=== PATIENT | male | born 1930 | race Caucasian/White ===

== ENCOUNTER 2016-11-07 19:46 | Inpatient (IN) | payer MEDICARE, BC ==
[2016-11-07] MEDS ORDERED: SODIUM CHLORIDE 0.9% 1,000 ML IV STA ×2 (20:37)
[2016-11-07] MEDS ORDERED: IPRATROPIUM-ALBUTEROL 3 ML NEB INHALATION STA (20:37)
--- NOTE | 2016-11-07 20:54 | ED ---
General Adult HPI - General Chief complaint: Shortness of Breath Stated complaint: Confusion Time Seen by Provider: 11/07/16 20:10 Source: patient, family, RN notes reviewed, old records reviewed Mode of arrival: wheelchair Limitations: no limitations - History of Present Illness Initial comments: This is an 86-year-old male the ER for evaluation of severe weakness. Increased weakness lethargy and anhedonia. Patient coming from [facility] today, patient with lack of activity lack of strength lack of appetite. Shortness of breath. Cough. Patient denies any pain at this time. Patient is recent complex medical history stemming from cardiac surgery, wound dehiscence, fall, hip fracture and surgery, and slow progressing rehabilitation. - Related Data Home Medications Medication Instructions Recorded Confirmed Allopurinol [Zyloprim] 100 mg PO DAILY 05/31/14 11/07/16 Ascorbic Acid [Vitamin C] 500 mg PO W/SUPPER 05/31/14 11/07/16 Ferrous Sulfate [Feosol] 325 mg PO WESA 05/31/14 11/07/16 Iron Polysaccharide Complex 150 mg PO W/SUPPER 05/31/14 11/07/16 [Ferrex 150] Levothyroxine Sodium 300 mcg PO MOTUWETHFR 05/31/14 11/07/16 Levothyroxine Sodium [Synthroid] 150 mcg PO SUSA 01/30/16 11/07/16 Atorvastatin Calcium [Lipitor] 40 mg PO HS 07/15/16 11/07/16 Fludrocortisone [Florinef] 0.05 mg PO DAILY 07/15/16 11/07/16 Aspirin 325 mg PO BID@0800,1700 08/15/16 11/07/16 Clopidogrel [Plavix] 75 mg PO W/SUPPER 08/15/16 11/07/16 Terazosin [Hytrin] 5 mg PO DAILY 08/15/16 11/07/16 Calcium Carbonate [Calcium] 600 mg PO BID 11/07/16 11/07/16 Cyanocobalamin [Vitamin B-12] 1,000 mcg PO W/SUPPER 11/07/16 11/07/16 Famotidine [Pepcid] 20 mg PO BID 11/07/16 11/07/16 Ipratropium-Albuterol Nebulize 3 ml INHALATION RT-QID 11/07/16 11/07/16 [Duoneb 0.5 mg-3 mg/3 ml Soln] Ipratropium-Albuterol Nebulize 3 ml INHALATION RT-QID PRN 11/07/16 11/07/16 [Duoneb 0.5 mg-3 mg/3 ml Soln] Mirtazapine [Remeron] 15 mg PO W/SUPPER 11/07/16 11/07/16 Sennosides [Senna] 8.6 mg PO BID 11/07/16 11/07/16 amLODIPine [Norvasc] 5 mg PO DAILY 11/07/16 11/07/16 Previous Rx's Medication Instructions Recorded Nitroglycerin Sl Tabs [Nitrostat] 0.4 mg SUBLINGUAL Q5M PRN #0 tab 07/23/16 Carvedilol [Coreg] 6.25 mg PO BID-W/MEALS tab 08/12/16 ALPRAZolam [Xanax] 0.25 mg PO BID PRN #60 tab 08/27/16 Allergies Allergy/AdvReac Type Severity Reaction Status Date / Time hops Allergy Unknown Verified 11/07/16 21:08 Penicillins Allergy Itching Verified 11/07/16 21:08 tomato Allergy Unknown Verified 11/07/16 21:08 Review of Systems ROS Statement: Those systems with pertinent positive or pertinent negative responses have been documented in the HPI. ROS Other: All systems not noted in ROS Statement are negative. Past Medical History Past Medical History: Coronary Artery Disease (CAD), Cancer, Heart Failure, COPD , CVA/TIA, GERD/Reflux, Hyperlipidemia, Hypertension, Osteoarthritis (OA), Prostate Disorder, Thyroid Disorder Additional Past Medical History / Comment(s): pancreatic ca-2006, history of mini strokes, history of carotid endarterectomy on the left for carotid artery disease, diverticulosis, iron deficiency anemia/MGUS, CVA/TIA, hyperlipidemia, hypertension, osteoarthritis, hypothyroidism FX LT HIP IN JUL-2016 NON-HEALING CHEST WALL WOUND(HAD OPEN HEART RECENTLY), PER [place] SHEETS 02 2 LITERS, OCC INCONT OF URINE. PT CURRENTLY W/C OF LIFT History of Any Multi-Drug Resistant Organisms: Acinetobacter (MDRO) Date of last positivie culture/infection: 08/20/2016 MDRO Source:: chest Past Surgical History: Adenoidectomy, Appendectomy, Cholecystectomy, Coronary Bypass/CABG, Heart Catheterization, Hernia Repair, Tonsillectomy Additional Past Surgical History / Comment(s): Hernia repair in 1999, 2009, and 2011, Whipple procedure August 2007, left carotid endarterectomy 1995, nasal polyp 1995,NASAL RECONSTRUCTIVE SX, PROSTATE BX, CABG x3 & mitral vaule repair and exclusion of JESÚS. 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 [facility]. Smoking Status: Never smoker Past Alcohol Use History: None Reported Past Drug Use History: None Reported - Past Family History Father Family Medical History: Coronary Artery Disease (CAD), Myocardial Infarction ([place] ) Additional Family Medical History / Comment(s): THROMBOSIS Mother Family Medical History: No Reported History Additional Family Medical History / Comment(s): MOM LIVED TO BE 105- FROM OLD AGE Brother(s) Family Medical History: Coronary Artery Disease (CAD), Pneumonia Sister(s) Family Medical History: Pneumonia Son(s) Family Medical History: No Reported History Daughter(s) Family Medical History: No Reported History General Exam Limitations: no limitations General appearance: alert, anxious, lethargic, in distress, cachectic Head exam: Present: atraumatic, normocephalic, normal inspection Eye exam: Present: normal appearance, PERRL, EOMI. Absent: scleral icterus, conjunctival injection, periorbital swelling ENT exam: Present: mucous membranes dry Neck exam: Present: normal inspection. Absent: tenderness, meningismus, lymphadenopathy Respiratory exam: Present: normal lung sounds bilaterally. Absent: respiratory distress, wheezes, rales, rhonchi, stridor Cardiovascular Exam: Present: regular rate, normal rhythm, normal heart sounds. Absent: systolic murmur, diastolic murmur, rubs, gallop, clicks GI/Abdominal exam: Present: soft, normal bowel sounds. Absent: distended, tenderness, guarding, rebound, rigid Extremities exam: Present: normal inspection, full ROM, normal capillary refill. Absent: tenderness, pedal edema, joint swelling, calf tenderness Back exam: Present: normal inspection Neurological exam: Present: alert, oriented X3, CN II-XII intact Psychiatric exam: Present: normal affect, normal mood Skin exam: Present: warm, dry, intact, normal color. Absent: rash Course Vital Signs 11/07/16 11/07/16 11/07/16 20:23 20:27 21:08 Temperature 98 F Pulse Rate 67 61 Respiratory 16 Rate Blood Pressure 118/60 O2 Sat by Pulse 82 L 100 Oximetry 11/07/16 11/07/16 21:22 21:43 Temperature 97.8 F Pulse Rate 58 L 78 Respiratory 20 Rate Blood Pressure 94/50 O2 Sat by Pulse 98 Oximetry - Reevaluation(s) Reevaluation #1: 11/07/16 20:54 Patient pulse ox low on room air, 82%, mild improvement on oxygen and breathing treatment Reevaluation #2: 11/07/16 21:39 Patient with no significant improvement in breathing treatment Reevaluation #3: 11/07/16 22:09 Spoke with family greater than 50 Ministry on patient condition, questions are answered, patient with no clinical improvement EKG Findings - EKG Comments: EKG Findings:: EKG shows sinus rhythm rate of 62, pr 214, QRS 122, QTc 507 Medical Decision Making - Medical Decision Making 86 year for evaluation of shortness of breath. Patient noted to be severely anemic, weak and dehydrated on exam. Malnourished. Patient does have drainage from surgical vac, bloody drainage, patient's hemoglobin has dropped significantly. Patient be admitted for monitoring of hemoglobin transfusion and further management and treatment of chronic disease - Lab Data Result diagrams: 11/07/16 20:57 11/07/16 20:57 Lab Results 11/07/16 11/07/16 11/07/16 Range/Units 20:57 20:57 20:57 WBC 6.3 (3.8-10.6) k/uL RBC 1.91 L (4.30-5.90) m/uL Hgb 6.5 L* D (13.0-17.5) gm/dL Hct 20.3 L (39.0-53.0) % MCV 106.5 H (80.0-100.0) fL MCH 34.0 (25.0-35.0) pg MCHC 31.9 (31.0-37.0) g/dL RDW 19.1 H (11.5-15.5) % Plt Count 188 (150-450) k/uL Neutrophils % 64 % Lymphocytes % 12 % Monocytes % 8 % Eosinophils % 13 % Basophils % 0 % Neutrophils # 4.0 (1.3-7.7) k/uL Lymphocytes # 0.7 L (1.0-4.8) k/uL Monocytes # 0.5 (0-1.0) k/uL Eosinophils # 0.8 H (0-0.7) k/uL Basophils # 0.0 (0-0.2) k/uL Hypochromasia Moderate Anisocytosis Slight Macrocytosis Marked PT (9.0-12.0) sec INR (<1.1) APTT (22.0-30.0) sec Sodium 147 H (137-145) mmol/L Potassium 3.8 (3.5-5.1) mmol/L Chloride 106 (98-107) mmol/L Carbon Dioxide 31 H (22-30) mmol/L Anion Gap 10 mmol/L BUN 37 H (9-20) mg/dL Creatinine 1.46 H (0.66-1.25) mg/dL Est GFR (MDRD) Af Amer 55 (>60 ml/min/1.73 sqM) Est GFR (MDRD) Non-Af 46 (>60 ml/min/1.73 sqM) Glucose 92 (74-99) mg/dL Plasma Lactic Acid Uvaldo (0.7-2.0) mmol/L Calcium 8.7 (8.4-10.2) mg/dL Phosphorus 4.3 (2.5-4.5) mg/dL Magnesium 1.6 (1.6-2.3) mg/dL Total Bilirubin 0.3 (0.2-1.3) mg/dL AST 31 (17-59) U/L ALT 49 (21-72) U/L Alkaline Phosphatase 97 (38-126) U/L Total Creatine Kinase 22 L (55-170) U/L CK-MB (CK-2) 2.1 (0.0-2.4) ng/mL CK-MB (CK-2) Rel Index 9.5 Troponin I <0.012 (0.000-0.034) ng/mL Total Protein 5.8 L (6.3-8.2) g/dL Albumin 2.9 L (3.5-5.0) g/dL TSH 10.000 H (0.465-4.680) mIU/L 11/07/16 11/07/16 Range/Units 20:57 20:57 WBC (3.8-10.6) k/uL RBC (4.30-5.90) m/uL Hgb (13.0-17.5) gm/dL Hct (39.0-53.0) % MCV (80.0-100.0) fL MCH (25.0-35.0) pg MCHC (31.0-37.0) g/dL RDW (11.5-15.5) % Plt Count (150-450) k/uL Neutrophils % % Lymphocytes % % Monocytes % % Eosinophils % % Basophils % % Neutrophils # (1.3-7.7) k/uL Lymphocytes # (1.0-4.8) k/uL Monocytes # (0-1.0) k/uL Eosinophils # (0-0.7) k/uL Basophils # (0-0.2) k/uL Hypochromasia Anisocytosis Macrocytosis PT 11.2 (9.0-12.0) sec INR 1.1 (<1.1) APTT 27.6 (22.0-30.0) sec Sodium (137-145) mmol/L Potassium (3.5-5.1) mmol/L Chloride (98-107) mmol/L Carbon Dioxide (22-30) mmol/L Anion Gap mmol/L BUN (9-20) mg/dL Creatinine (0.66-1.25) mg/dL Est GFR (MDRD) Af Amer (>60 ml/min/1.73 sqM) Est GFR (MDRD) Non-Af (>60 ml/min/1.73 sqM) Glucose (74-99) mg/dL Plasma Lactic Acid Uvaldo <0.5 L (0.7-2.0) mmol/L Calcium (8.4-10.2) mg/dL Phosphorus (2.5-4.5) mg/dL Magnesium (1.6-2.3) mg/dL Total Bilirubin (0.2-1.3) mg/dL AST (17-59) U/L ALT (21-72) U/L Alkaline Phosphatase (38-126) U/L Total Creatine Kinase (55-170) U/L CK-MB (CK-2) (0.0-2.4) ng/mL CK-MB (CK-2) Rel Index Troponin I (0.000-0.034) ng/mL Total Protein (6.3-8.2) g/dL Albumin (3.5-5.0) g/dL TSH (0.465-4.680) mIU/L - Radiology Data Radiology results: report reviewed (Chest x-ray two-view positive for pneumonia) , image reviewed Critical Care Time Critical Care Time: Yes Total Critical Care Time: 31 Disposition Clinical Impression: Anemia, Iron deficiency anemia, Malnutrition, Disruption or dehiscence of closure of sternum or sternotomy, Blood loss anemia, Nosocomial pneumonia, ARF ( acute renal failure), Dehydration, Weakness Disposition: ADMITTED IP TO THIS HOSP Condition: Fair
[2016-11-07] MEDS ORDERED: LEVOFLOXACIN 750MG-D5W PMX 750 MG in DEXTROSE/WATER 1 150ML.BAG IVPB SCH (21:00)
[2016-11-07 21:14] LABS: Anisocytosis Slight; Basophils % (A) 0 %; CH 32.8; CHCM 31.1; Eosinophils # (A) 0.8 k/uL (0-0.7); Eosinophils % (A) 13 %; HCT 20.3 % (39.0-53.0); HDW 3.08; Hypochromasia Moderate; Luc # (Auto) 0.16; Luc % (Auto) 3; Lymphocytes # (A) 0.7 k/uL (1.0-4.8); Lymphocytes % (A) 12 %; MCHC 31.9 g/dL (31.0-37.0); MCV 106.5 fL (80.0-100.0); Macrocytosis Marked; Mean Platelet Volume 7.9; Monocytes # (A) 0.5 k/uL (0-1.0); Monocytes % (A) 8 %; Neutrophils % (A) 64 %; RBC 1.91 m/uL (4.30-5.90); RDW 19.1 % (11.5-15.5); WBC 6.3 k/uL (3.8-10.6); WBC (Perox) 6.27
[2016-11-07 21:21] LABS: INR 1.1 (<1.1); Partial Thromboplastin Time 27.6 sec (22.0-30.0); Prothrombin Time 11.2 sec (9.0-12.0)
[2016-11-07 21:22] LABS: Calcium 8.7 mg/dL (8.4-10.2); Magnesium 1.6 mg/dL (1.6-2.3); Phosphorous 4.3 mg/dL (2.5-4.5); Potassium 3.8 mmol/L (3.5-5.1); Total Bilirubin 0.3 mg/dL (0.2-1.3); Total Protein 5.8 g/dL (6.3-8.2)
[2016-11-07 21:27] LABS: HGB 6.5 gm/dL (13.0-17.5)
[2016-11-07 21:29] LABS: Creatine Kinase 22 U/L (55-170)
[2016-11-07] MEDS ORDERED: diphenhydrAMINE 50 MG/ML 1 ML VIAL IVP STA (21:38)
[2016-11-07 21:42] LABS: Creatine Kinase MB 2.1 ng/mL (0.0-2.4); Troponin I <0.012 ng/mL (0.000-0.034)
--- NOTE | 2016-11-07 22:03 | XR ---
EXAMINATION TYPE: XR chest 2V DATE OF EXAM: 11/07/2016 9:50 PM COMPARISON: 08/20/2016 HISTORY: Weakness and fatigue TECHNIQUE: Frontal and lateral views of the chest are obtained. FINDINGS: Heart is enlarged. There is some pulmonary vascular congestion. There is blunting of the c ostophrenic angles. There is pleural thickening at the posterior lung bases. There are old left-sided healed rib fractures. There are no hilar masses. There are sternal wires. There are chest leads. IMPRESSION: There is evidence of mild congestive heart failure that is new compared to 08/20/2016. T here is bilateral pleural effusions that are increased. Bilateral lower lobe pneumonia cannot be excl uded. There are basilar pulmonary infiltrates that are new compared to last exam.
[2016-11-07] MEDS ORDERED: LEVOFLOXACIN 750MG-D5W PMX 750 MG in DEXTROSE/WATER 1 150ML.BAG IVPB STA (22:08)
[2016-11-07] MEDS ORDERED: CEFEPIME 2 GM in SODIUM CHLORIDE 0.9% 50 ML IVPB STA (22:08)
[2016-11-07 23:00] VITALS: BMI 21.9
[2016-11-08 05:55] LABS: Glucose,Whole Blood 168 mg/dL (75-99)
[2016-11-08] MEDS ORDERED: NOREPINEPHRINE 4 MG-0.9% NS PMX 250 ML IV ONE (06:05)
[2016-11-08] MEDS ORDERED: ATROPINE SULFATE 0.1 MG/ML 10ML SYRINGE ONE (06:20)
[2016-11-08 07:26] LABS: Amorphous Sediment,Urine Few /hpf; Appearance,Urine Cloudy (Clear); Bilirubin,Urine Negative (Negative); Glucose,Urine (UA) Negative (Negative); Ketones,Urine Negative (Negative); Leukocyte Esterase,Urine Negative (Negative); Mucus,Urine Rare /hpf; Nitrite,Urine Negative (Negative); Particle Count 13777; Protein,Urine 1+ (Negative); Specific Gravity,Urine 1.014 (1.001-1.035); UA Billing (MACRO vs. MICRO) MICRO; Urobilinogen,Urine <2.0 mg/dL (<2.0); WBC,Urine 1 /hpf (0-5)
[2016-11-08] MEDS ORDERED: IV VANCOMYCIN PER PHARMACY 1 EACH MISC MISCELLANE PRN (08:04)
[2016-11-08] MEDS ORDERED: PROPOFOL 50 ML IV ONE ×6 (08:04→23:59)
[2016-11-08] MEDS ORDERED: NOREPINEPHRINE 16 MG in SODIUM CHLORIDE 0.9% 250 ML IV SCH (08:15)
[2016-11-08] MEDS ORDERED: VANCOMYCIN 1,250 MG in SODIUM CHLORIDE 0.9% 250 ML IVPB ONE (08:30)
--- NOTE | 2016-11-08 08:43 | XR ---
EXAMINATION TYPE: XR chest 1V portable DATE OF EXAM: 11/08/2016 8:30 AM Comparison: 11/07/2016 Clinical History: 6 year-old male tube placement Findings: ET tube is satisfactory. NG tube courses below the diaphragm but the tip is beyond the field of view. Left PICC tip is at the lower SVC. Heart is borderline enlarged, improved from prior. Median sternotomy wires are present with post-CABG changes. There is hyperinflation with interstitial prominence although densities are improved from p rior. Small pleural effusions persist. Impression: Findings suggest COPD with improving CHF. Residual small pleural effusions.
[2016-11-08] MEDS: IPRATROPIUM-ALBUTEROL 3 ML NEB INHALATION PRN ×4 (08:50→19:18)
[2016-11-08] MEDS ORDERED: CEFEPIME 2 GM in SODIUM CHLORIDE 0.9% 50 ML IVPB SCH (09:00)
[2016-11-08 10:00] LABS: ABG PH <7.00 (7.35-7.45)
[2016-11-08 10:01] LABS: ABG PCO2 >125 mmHg (35-45); ABG PO2 218 mmHg (83-108)
[2016-11-08 10:01] LABS: Anisocytosis Slight; Basophils % (A) 0 %; CH 32.9; CHCM 30.1; Eosinophils # (A) 0.1 k/uL (0-0.7); Eosinophils % (A) 2 %; HCT 34.8 % (39.0-53.0); HDW 3.44; Hypochromasia Marked; Luc # (Auto) 0.17; Luc % (Auto) 3; Lymphocytes # (A) 0.7 k/uL (1.0-4.8); Lymphocytes % (A) 14 %; MCH 31.9 pg (25.0-35.0); MCHC 28.8 g/dL (31.0-37.0); MCV 110.9 fL (80.0-100.0); Macrocytosis Marked; Mean Platelet Volume 8.5; Monocytes # (A) 0.5 k/uL (0-1.0); Monocytes % (A) 10 %; Neutrophils # (A) 3.7 k/uL (1.3-7.7); Neutrophils % (A) 71 %; Poikilocytosis Slight; RBC 3.14 m/uL (4.30-5.90); RDW 19.4 % (11.5-15.5); WBC 5.2 k/uL (3.8-10.6); WBC (Perox) 4.95
[2016-11-08 10:02] LABS: ABG Base Excess -2.6 mmol/L; ABG HCO3 29 mmol/L (21-25); ABG TCO2 33 mmol/L (19-24)
[2016-11-08 10:09] LABS: Calcium 8.8 mg/dL (8.4-10.2); Potassium 3.9 mmol/L (3.5-5.1)
[2016-11-08] MEDS: PROPOFOL 500 MG in EMPTY BAG 1 BAG IV SCH ×5 (10:15→21:44)
[2016-11-08] MEDS ORDERED: ALPRAZolam 0.25 MG TAB PO PRN (10:17)
[2016-11-08] MEDS ORDERED: NITROGLYCERIN SL TABS 0.4 MG TAB SUBLINGUAL PRN (10:17)
[2016-11-08] MEDS: DOPamine DRIP 800 MG in DEXTROSE/WATER 1 500ML.BAG IV SCH (10:20)
[2016-11-08] MEDS ORDERED: LEVOTHYROXINE 100 MCG TAB PO SCH (10:30)
[2016-11-08 10:34] LABS: ABG PH 7.29 (7.35-7.45)
[2016-11-08 10:35] LABS: ABG Base Excess -1.6 mmol/L; ABG HCO3 24 mmol/L (21-25); ABG PCO2 52 mmHg (35-45); ABG PO2 89 mmHg (83-108); ABG TCO2 26 mmol/L (19-24)
[2016-11-08] MEDS: HYDROCORTISONE SUCCINATE 100 MG/2 ML VIAL IV SCH ×3 (10:43→23:44)
[2016-11-08] MEDS: CARVEDILOL 6.25 MG TAB PO SCH ×2 (10:51→17:53)
[2016-11-08] MEDS: CHLORHEXIDINE GLUCONATE 15 ML CUP MUCOUS MEM SCH ×2 (10:53→21:25)
--- NOTE | 2016-11-08 13:19 | CT ---
EXAMINATION TYPE: CT brain wo con DATE OF EXAM: 11/08/2016 1:09 PM COMPARISON: 12/13/2015 HISTORY: 86-year-old male with altered mental changes, rule out stroke. Patient stopped breathing las t night. TECHNIQUE: Examination was done in axial plane without intravenous contrast. Coronal and sagittal reconstructio ns performed. CT DLP: 1029.9 mGycm Automated exposure control for dose reduction was used. FINDINGS: There is no evidence of acute intracranial hemorrhage, acute ischemic changes, mass, mass-effect, or extra-axial fluid collection. There is no effacement of cerebral sulci or basal subarachnoid cister ns. There is no hydrocephalus. There is no midline shift. Raphael-white matter distinction is preserv ed. There is mild generalized supratentorial volume loss with mild to moderate white matter hypodensities suggesting chronic small vessel ischemic disease. There is chronic paranasal sinus disease with a prior sinonasal surgery. Mastoid air cells are well p neumatized. Orbits and globes appear intact. IMPRESSION: No acute intracranial abnormality seen. Stable mild atrophy and changes of chronic small vessel ische melissa disease.
--- NOTE | 2016-11-08 14:40 | P.CNPUL ---
History of Present Illness Consult date: 11/08/16 Requesting physician: Shauna Garcia Reason for consult: other (Acute hypercapnic respiratory failure) Chief complaint: Acute mental status change and shortness of breath. History of present illness: This is an 86-year-old white male with history of multiple medical problems, patient was brought in last night from [facility] with multiple complaints including lack of activity, weakness, poor appetite, shortness of breath, dry cough, patient has recent complex medical problems including recent cardiac surgery with complications related to sternal wound dehiscence, recent fall and hip fracture requiring surgery, and the patient has been in rehab recovering from his most recent surgeries. Patient has also been undergoing wound debridement, and wound VAC placement for his sternal wound. Upon arrival to the ER, patient was noted to have a low hemoglobin of 6.5. He was admitted for blood transfusion, and apparently early this morning patient was receiving his second unit of packed RBCs when he was noted to be calm bradycardic, hypotensive , and obtunded. Hence the patient was seen by the A team and he was transferred to the intensive care unit. Upon arrival to the ICU, patient was noted to be hypotensive and bradycardic, he was given atropine, placed on norepinephrine for low blood pressure, and ABG was performed. His ABG showed a significantly elevated pCO2 of 130, and his pH was just below 7. I was notified about this patient and about the ABG, and I recommended immediate intubation of the patient. Patient was placed on mechanical ventilation, kept on norepinephrine for low blood pressure, his heart rate responded well and upon my evaluation was in the low 80s. His lactic acid was less than 0.5 troponins were also normal TSH was noted to be elevated. His urinalysis was relatively unremarkable. Renal profile worsened from creatinine of 1.46 to creatinine of 1.80. Shortly after mechanical ventilation, repeat ABG showed a pO2 of 89 pCO2 of 50 to pH of 7.29 and this was on 80% FiO2. Chest x-ray showed mild congestive changes and COPD findings with residual small pleural effusions CT of the brain showed no evidence of acute intracranial hemorrhage or acute ischemic changes. Chronic small vessel ischemic changes noted serum cortisol is pending at the time of my dictation, patient was given 100 mg of Solu-Cortef earlier. All his meds were reviewed patient is presently on DuoNeb updrafts, Corag for LV dysfunction cefepime, dopamine, Levaquin, Synthroid, propofol, vancomycin patient will also be placed on GI and DVT prophylaxis. Review of Systems ROS unobtainable: due to endotracheal tube, due to mental status Past Medical History Past Medical History: Coronary Artery Disease (CAD), Cancer, Heart Failure, COPD , CVA/TIA, GERD/Reflux, Hyperlipidemia, Hypertension, Osteoarthritis (OA), Prostate Disorder, Thyroid Disorder Additional Past Medical History / Comment(s): pancreatic ca-2006, history of mini strokes, history of carotid endarterectomy on the left for carotid artery disease, diverticulosis, iron deficiency anemia/MGUS, CVA/TIA, hyperlipidemia, hypertension, osteoarthritis, hypothyroidism FX LT HIP IN JUL-2016 NON-HEALING CHEST WALL WOUND(HAD OPEN HEART RECENTLY), PER [facility] SHEETS 02 2 LITERS, OCC INCONT OF URINE. PT CURRENTLY W/C OF LIFT History of Any Multi-Drug Resistant Organisms: Acinetobacter (MDRO) Date of last positivie culture/infection: 08/20/2016 MDRO Source:: chest Past Surgical History: Adenoidectomy, Appendectomy, Cholecystectomy, Coronary Bypass/CABG, Heart Catheterization, Hernia Repair, Tonsillectomy Additional Past Surgical History / Comment(s): Hernia repair in 1999, 2009, and 2011, Whipple procedure August 2007, left carotid endarterectomy 1995, nasal polyp 1995,NASAL RECONSTRUCTIVE SX, PROSTATE BX, CABG x3 & mitral vaule repair and exclusion of JESÚS. 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 Smoking Status: Never smoker Past Alcohol Use History: None Reported Past Drug Use History: None Reported - Past Family History Father Family Medical History: Coronary Artery Disease (CAD), Myocardial Infarction ([place] ) Additional Family Medical History / Comment(s): THROMBOSIS Mother Family Medical History: No Reported History Additional Family Medical History / Comment(s): MOM LIVED TO BE 105- FROM OLD AGE Brother(s) Family Medical History: Coronary Artery Disease (CAD), Pneumonia Sister(s) Family Medical History: Pneumonia Son(s) Family Medical History: No Reported History Daughter(s) Family Medical History: No Reported History Medications and Allergies Home Medications Medication Instructions Recorded Confirmed Type Allopurinol [Zyloprim] 100 mg PO DAILY 05/31/14 11/07/16 History Ascorbic Acid [Vitamin C] 500 mg PO W/SUPPER 05/31/14 11/07/16 History Ferrous Sulfate [Feosol] 325 mg PO WESA 05/31/14 11/07/16 History Iron Polysaccharide Complex 150 mg PO W/SUPPER 05/31/14 11/07/16 History [Ferrex 150] Levothyroxine Sodium 300 mcg PO MOTUWETHFR 05/31/14 11/07/16 History Levothyroxine Sodium [Synthroid] 150 mcg PO SUSA 01/30/16 11/07/16 History Atorvastatin Calcium [Lipitor] 40 mg PO HS 07/15/16 11/07/16 History Fludrocortisone [Florinef] 0.05 mg PO DAILY 07/15/16 11/07/16 History Aspirin 325 mg PO BID@0800,1700 08/15/16 11/07/16 History Clopidogrel [Plavix] 75 mg PO W/SUPPER 08/15/16 11/07/16 History Terazosin [Hytrin] 5 mg PO DAILY 08/15/16 11/07/16 History Calcium Carbonate [Calcium] 600 mg PO BID 11/07/16 11/07/16 History Cyanocobalamin [Vitamin B-12] 1,000 mcg PO W/SUPPER 11/07/16 11/07/16 History Famotidine [Pepcid] 20 mg PO BID 11/07/16 11/07/16 History Ipratropium-Albuterol Nebulize 3 ml INHALATION RT-QID 11/07/16 11/07/16 History [Duoneb 0.5 mg-3 mg/3 ml Soln] Ipratropium-Albuterol Nebulize 3 ml INHALATION RT-QID PRN 11/07/16 11/07/16 History [Duoneb 0.5 mg-3 mg/3 ml Soln] Mirtazapine [Remeron] 15 mg PO W/SUPPER 11/07/16 11/07/16 History Sennosides [Senna] 8.6 mg PO BID 11/07/16 11/07/16 History amLODIPine [Norvasc] 5 mg PO DAILY 11/07/16 11/07/16 History Allergies Allergy/AdvReac Type Severity Reaction Status Date / Time hops Allergy Unknown Verified 11/07/16 21:08 Penicillins Allergy Itching Verified 11/07/16 21:08 tomato Allergy Unknown Verified 11/07/16 21:08 Physical Exam Vitals: Vital Signs Temp Pulse Pulse Resp BP BP Pulse Ox 11/08/16 12:16 90 11/08/16 12:00 96.3 F L 88 87 16 97/49 100 11/08/16 11:50 88 11/08/16 11:30 84 18 97/49 99 11/08/16 11:00 83 18 97/49 99 11/08/16 10:30 79 15 97/49 98 11/08/16 10:00 81 22 99/53 97 11/08/16 09:30 80 17 88/47 100 11/08/16 09:05 81 11/08/16 09:00 92 16 136/67 100 11/08/16 08:50 78 11/08/16 08:30 76 11 L 77/52 100 11/08/16 08:00 61 61 21 89/49 100 11/08/16 07:55 88.6 F L 61 8 L 88/48 11/08/16 07:30 70 9 L 85/48 98 11/08/16 07:00 62 13 83/50 100 11/08/16 06:30 89.8 F L 71 15 101/52 98 11/08/16 06:03 49 L 4 L 76/44 99 11/08/16 05:18 50 L 16 81/49 99 11/08/16 05:08 50 L 16 80/44 99 11/08/16 04:00 97.1 F L 53 L 15 90/53 99 11/08/16 03:49 96.8 F L 56 L 16 90/53 11/08/16 01:16 96.7 F L 56 L 16 99/52 11/08/16 00:46 96.8 F L 58 L 16 100/55 99 11/08/16 00:36 96.7 F L 57 L 18 104/53 99 11/08/16 00:00 96.8 F L 57 L 16 104/53 99 11/07/16 21:43 97.8 F 78 20 94/50 98 Intake and Output 11/07/16 11/08/16 11/08/16 22:59 06:59 14:59 Intake Total 620 250 Output Total 14 85 Balance 606 165 Intake: Blood Product 620 250 Rc As-1 Unit 310 [id number] Rc Cpda-1 Unit 0 250 [id number] Output: Urine 85 Post Void Residual 14 Other: Voiding Method Diaper Indwelling Catheter # Bowel Movements 0 Weight 73.5 kg 73.5 kg 73.5 kg Patient Weight 11/09/16 06:59 Weight 73.5 kg ABP, PAP, CO, CI - Last 8 Hours Arterial Blood Pressure 104/80 Arterial Blood Pressure 121/48 Arterial Blood Pressure 107/45 Arterial Blood Pressure 101/43 Arterial Blood Pressure 105/79 Physical Exam: Revealed an 86-year-old white male, unresponsive, on mechanical ventilation, looks pale and chronically ill. Patient is on propofol which I plan to hold and assess mental status off sedation. Now that his hypercapnia has been corrected by mechanical ventilation. HEENT:[Neck is supple.] [No neck masses.] [No thyromegaly.] [No JVD.] Endotracheal tube is intact, patient looks pale. Chest: [Minimal crackles at the bases, no rhonchi and no wheezes.] Cardiac Exam: [Normal S1 and S2, no S3 gallop, 2/6 systolic murmur throughout the precordium.] Abdomen: [Soft, nontender, no megaly, no rebound, no guarding, normal bowel sounds.] Extremities: [No clubbing, no edema, no cyanosis.] Neurological Exam: Cannot be assessed, patient is fully sedated, however he seems to move upper extremities to deep painful stimuli. Results - Laboratory Findings CBC and BMP: 11/08/16 09:04 11/08/16 09:04 ABG ABG pH 7.29 (7.35-7.45) L 11/08/16 10:25 ABG pCO2 52 mmHg (35-45) H 11/08/16 10:25 ABG pO2 89 mmHg (83-108) 11/08/16 10:25 ABG O2 Saturation 96.0 % (94-97) 11/08/16 10:25 PT/INR, D-dimer PT 11.2 sec (9.0-12.0) 11/07/16 20:57 INR 1.1 (<1.1) 11/07/16 20:57 Abnormal lab findings: Abnormal Labs 11/08/16 11/08/16 11/08/16 05:52 07:35 09:04 RBC 3.14 L Hgb 10.0 L D Hct 34.8 L MCV 110.9 H MCHC 28.8 L RDW 19.4 H Plt Count 142 L Lymphocytes # 0.7 L ABG pH <7.00 L* ABG pCO2 >125 H* ABG pO2 218 H ABG HCO3 29 H ABG Total CO2 33 H ABG O2 Saturation 99.0 H Sodium BUN Creatinine Glucose POC Glucose (mg/dL) 168 H 11/08/16 11/08/16 09:04 10:25 RBC Hgb Hct MCV MCHC RDW Plt Count Lymphocytes # ABG pH 7.29 L ABG pCO2 52 H ABG pO2 ABG HCO3 ABG Total CO2 26 H ABG O2 Saturation Sodium 148 H BUN 38 H Creatinine 1.80 H Glucose 133 H POC Glucose (mg/dL) - Diagnostic Findings Chest x-ray: image reviewed (Mild congestive heart failure changes and COPD noted) Assessment and Plan Plan: Impression: 1 acute hypercapnic respiratory failure, exact etiology is not clear, obviously the patient has underlying COPD, and he presented with profound anemia and possible sepsis, apparently his respiratory status deteriorated secondary to congestive heart failure, may or may not be related to blood transfusion, and the patient went on to develop significant respiratory muscle fatigue and profound hypercapnia. That resulted in mental status change and CO2 narcosis. No evidence of CVA noted on the CT of the brain. After reviewing the chart, there is no evidence where the patient received any narcotics or significant respiratory depressants to explain his acute hypercapnia. I believe his acute hypercapnia and respiratory failure is multifactorial, secondary to severe underlying COPD, congestive heart failure cardiomyopathy and LV dysfunction, profound anemia, and possible sepsis. The medications including Remeron Xanax and Benadryl may have also contributed to his acute hypercapnia. Recommendation: Patient will be kept on mechanical ventilation, antibiotics, hemodynamic support including the use of pressors, fluids but cautiously, we'll correct his anemia obviously it was already corrected with 2 units of packed RBCs. GI and DVT prophylaxis and will continue to follow closely. Multiple comorbidities including history of severe coronary artery disease and previous CABG, cardiomyopathy and LV dysfunction, ejection fraction of 30 percent, history of previous CVA and TIA history of hypothyroidism on replacement therapy, history of iron deficiency anemia history of sternal wound infection and dehiscence patient had a wound VAC in place and it was removed by the thoracic surgeon on the case. Overall prognosis is definitely poor and guarded, we'll continue to follow closely. Critical care time is 40 minutes. Time with Patient: Greater than 30
[2016-11-08] MEDS ORDERED: EMPTY BAG 1 BAG ONE (14:43)
--- NOTE | 2016-11-08 15:38 | PCN ---
DATE OF PROCEDURE: PROCEDURE: Placement of left radial arterial line. PREOPERATIVE DIAGNOSIS: Hypotension. POSTOPERATIVE DIAGNOSIS: Hypotension. ANESTHESIA USED: None deployed. PROCEDURE: Left wrist was prepared in a sterile fashion and drapes were applied. Left radial artery was palpated, cannulated, and a guidewire was placed. A Cook's catheter was inserted over the guidewire, and the guidewire was removed. Good blood flow and good waveform were noted. No evidence of any immediate complications. Line was secured using 3-0 silk sutures.
--- NOTE | 2016-11-08 16:33 | P.CRDCN ---
History of Present Illness Consult date: 11/08/16 History of present illness: This is a 86-year-old gentleman with history of chronic anemia who underwent hiatal coronary bypass surgery several months ago and had prolonged course in the hospital and also in the nursing homes. He was in [facility] with multiple complaints including lack of appetite and weakness and shortness of breath and also wound dehiscence. Patient also had a recent hip fracture requiring surgery. Patient is going to [facility] here and apparently was found to be anemic and was sent to the emergency room. His hemoglobin was about 6.5. He was admitted to the hospital last night and received 2 units of blood transfusion. After the second unit of blood transfusion , patient apparently became bradycardic and hypotensive. He also received some Xanax and Benadryl. He was found to be severely hypercapnic and was intubated and admitted to the intensive care unit. His troponin values are normal. His EKGs did not reveal any acute changes. Patient is currently intubated and sedated. He is also getting IV dopamine. He is on antibiotics for suspected sepsis. Further recommendations depend upon the clinical course. We'll also obtain an echocardiogram within next 24 hours. Review of Systems Not obtained Past Medical History Past Medical History: Coronary Artery Disease (CAD), Cancer, Heart Failure, COPD , CVA/TIA, GERD/Reflux, Hyperlipidemia, Hypertension, Osteoarthritis (OA), Prostate Disorder, Thyroid Disorder Additional Past Medical History / Comment(s): pancreatic ca-2006, history of mini strokes, history of carotid endarterectomy on the left for carotid artery disease, diverticulosis, iron deficiency anemia/MGUS, CVA/TIA, hyperlipidemia, hypertension, osteoarthritis, hypothyroidism FX LT HIP IN JUL-2016 NON-HEALING CHEST WALL WOUND(HAD OPEN HEART RECENTLY), PER [facility] SHEETS 02 2 LITERS, OCC INCONT OF URINE. PT CURRENTLY W/C OF LIFT History of Any Multi-Drug Resistant Organisms: Acinetobacter (MDRO) Date of last positivie culture/infection: 08/20/2016 MDRO Source:: chest Past Surgical History: Adenoidectomy, Appendectomy, Cholecystectomy, Coronary Bypass/CABG, Heart Catheterization, Hernia Repair, Tonsillectomy Additional Past Surgical History / Comment(s): Hernia repair in 1999, 2009, and 2011, Whipple procedure August 2007, left carotid endarterectomy 1995, nasal polyp 1995,NASAL RECONSTRUCTIVE SX, PROSTATE BX, CABG x3 & mitral vaule repair and exclusion of JESÚS. 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 RAI AT [facility]. Smoking Status: Never smoker Past Alcohol Use History: None Reported Past Drug Use History: None Reported - Past Family History Father Family Medical History: Coronary Artery Disease (CAD), Myocardial Infarction (CT ) Additional Family Medical History / Comment(s): THROMBOSIS Mother Family Medical History: No Reported History Additional Family Medical History / Comment(s): MOM LIVED TO BE 105- FROM OLD AGE Brother(s) Family Medical History: Coronary Artery Disease (CAD), Pneumonia Sister(s) Family Medical History: Pneumonia Son(s) Family Medical History: No Reported History Daughter(s) Family Medical History: No Reported History Medications and Allergies Home Medications Medication Instructions Recorded Confirmed Type Allopurinol [Zyloprim] 100 mg PO DAILY 05/31/14 11/07/16 History Ascorbic Acid [Vitamin C] 500 mg PO W/SUPPER 05/31/14 11/07/16 History Ferrous Sulfate [Feosol] 325 mg PO WESA 05/31/14 11/07/16 History Iron Polysaccharide Complex 150 mg PO W/SUPPER 05/31/14 11/07/16 History [Ferrex 150] Levothyroxine Sodium 300 mcg PO MOTUWETHFR 05/31/14 11/07/16 History Levothyroxine Sodium [Synthroid] 150 mcg PO SUSA 01/30/16 11/07/16 History Atorvastatin Calcium [Lipitor] 40 mg PO HS 07/15/16 11/07/16 History Fludrocortisone [Florinef] 0.05 mg PO DAILY 07/15/16 11/07/16 History Aspirin 325 mg PO BID@0800,1700 08/15/16 11/07/16 History Clopidogrel [Plavix] 75 mg PO W/SUPPER 08/15/16 11/07/16 History Terazosin [Hytrin] 5 mg PO DAILY 08/15/16 11/07/16 History Calcium Carbonate [Calcium] 600 mg PO BID 11/07/16 11/07/16 History Cyanocobalamin [Vitamin B-12] 1,000 mcg PO W/SUPPER 11/07/16 11/07/16 History Famotidine [Pepcid] 20 mg PO BID 11/07/16 11/07/16 History Ipratropium-Albuterol Nebulize 3 ml INHALATION RT-QID 11/07/16 11/07/16 History [Duoneb 0.5 mg-3 mg/3 ml Soln] Ipratropium-Albuterol Nebulize 3 ml INHALATION RT-QID PRN 11/07/16 11/07/16 History [Duoneb 0.5 mg-3 mg/3 ml Soln] Mirtazapine [Remeron] 15 mg PO W/SUPPER 11/07/16 11/07/16 History Sennosides [Senna] 8.6 mg PO BID 11/07/16 11/07/16 History amLODIPine [Norvasc] 5 mg PO DAILY 11/07/16 11/07/16 History Allergies Allergy/AdvReac Type Severity Reaction Status Date / Time hops Allergy Unknown Verified 11/07/16 21:08 Penicillins Allergy Itching Verified 11/07/16 21:08 tomato Allergy Unknown Verified 11/07/16 21:08 Physical Exam Vitals: Vital Signs Temp Pulse Pulse Resp BP BP Pulse Ox 11/08/16 15:30 98.1 F 86 18 100 11/08/16 15:00 86 15 100 11/08/16 14:30 87 15 100 11/08/16 14:00 87 16 113/63 100 11/08/16 13:30 89 15 113/63 100 11/08/16 13:00 113/63 11/08/16 12:30 113/63 100 11/08/16 12:16 90 11/08/16 12:00 96.3 F L 88 87 16 97/49 100 11/08/16 11:50 88 11/08/16 11:30 84 18 97/49 99 11/08/16 11:00 83 18 97/49 99 11/08/16 10:30 79 15 97/49 98 11/08/16 10:00 81 22 99/53 97 11/08/16 09:30 80 17 88/47 100 11/08/16 09:05 81 11/08/16 09:00 92 16 136/67 100 11/08/16 08:50 78 11/08/16 08:30 76 11 L 77/52 100 11/08/16 08:00 61 61 21 89/49 100 11/08/16 07:55 88.6 F L 61 8 L 88/48 11/08/16 07:30 70 9 L 85/48 98 11/08/16 07:00 62 13 83/50 100 11/08/16 06:30 89.8 F L 71 15 101/52 98 11/08/16 06:03 49 L 4 L 76/44 99 11/08/16 05:18 50 L 16 81/49 99 11/08/16 05:08 50 L 16 80/44 99 11/08/16 04:00 97.1 F L 53 L 15 90/53 99 11/08/16 03:49 96.8 F L 56 L 16 90/53 11/08/16 01:16 96.7 F L 56 L 16 99/52 11/08/16 00:46 96.8 F L 58 L 16 100/55 99 11/08/16 00:36 96.7 F L 57 L 18 104/53 99 11/08/16 00:00 96.8 F L 57 L 16 104/53 99 11/07/16 21:43 97.8 F 78 20 94/50 98 Intake and Output 11/08/16 11/08/16 11/08/16 06:59 14:59 22:59 Intake Total 620 800 100 Output Total 14 160 45 Balance 606 640 55 Intake: IV 550 100 Sodium Chloride 0.9% 1, 300 100 000 ml @ 100 mls/hr IV . Q10H [facility] Rx#:[id number] Vancomycin 1,250 mg In 250 Sodium Chloride 0.9% 250 ml @ 125 mls/hr IVPB ONCE ONE Rx#:[id number] Blood Product 620 250 Rc As-1 Unit 310 [id number] Rc Cpda-1 Unit 0 250 [id number] Output: Urine 160 45 Post Void Residual 14 Other: Voiding Method Diaper Indwelling Catheter # Bowel Movements 0 Weight 73.5 kg 73.5 kg Patient Weight 11/09/16 06:59 Weight 73.5 kg ABP, PAP, CO, CI - Last 8 Hours Arterial Blood Pressure 124/50 Arterial Blood Pressure 128/59 Arterial Blood Pressure 117/52 Arterial Blood Pressure 114/54 Arterial Blood Pressure 132/57 Arterial Blood Pressure 116/64 Arterial Blood Pressure 104/80 Arterial Blood Pressure 121/48 Arterial Blood Pressure 107/45 Arterial Blood Pressure 101/43 Arterial Blood Pressure 105/79 GENERAL EXAM: Patient is intubated and sedated HEENT: Normocephalic. NECK: No masses, no nuchal rigidity. CHEST: Patient had wound VAC LUNGS: Breath sounds are diminished with some rhonchi HEART: S1 and S2 normal with no audible mumurs or gallops. Regular rhythm.. ABDOMEN: No hepatosplenomegaly, normal bowel sounds, no guarding or rigidity. SKIN: No rashes CENTRAL NERVOUS SYSTEM: No focal deficits. EXTREMITIES: No cyanosis, clubbing or edema. Results 11/08/16 09:04 11/08/16 09:04 Cardiac Enzymes 11/08/16 Range/Units 09:04 Troponin I <0.012 (0.000-0.034) ng/mL CBC 11/08/16 Range/Units 09:04 WBC 5.2 (3.8-10.6) k/uL RBC 3.14 L (4.30-5.90) m/uL Hgb 10.0 L D (13.0-17.5) gm/dL Hct 34.8 L (39.0-53.0) % Plt Count 142 L (150-450) k/uL Comprehensive Metabolic Panel 11/08/16 Range/Units 09:04 Sodium 148 H (137-145) mmol/L Potassium 3.9 (3.5-5.1) mmol/L Chloride 107 (98-107) mmol/L Carbon Dioxide 30 (22-30) mmol/L BUN 38 H (9-20) mg/dL Creatinine 1.80 H (0.66-1.25) mg/dL Glucose 133 H (74-99) mg/dL Calcium 8.8 (8.4-10.2) mg/dL Current Medications Generic Name Dose Route Start Last Admin Trade Name Freq PRN Reason Stop Dose Admin Albuterol/Ipratropium 3 ml 11/07/16 21:36 11/08/16 11:59 Duoneb 0.5 Mg-3 Mg/3 Ml Soln INHALATION 3 ml RT-Q4H PRN Administration Shortness Of Breath Or Wheezing Aspirin 325 mg 11/08/16 17:00 Aspirin PO BID@0800,1700 [facility] Carvedilol 6.25 mg 11/08/16 10:30 11/08/16 10:51 Coreg PO Not Given BID-W/MEALS [facility] Chlorhexidine Gluconate 15 ml 11/08/16 09:00 11/08/16 10:53 Peridex MUCOUS MEM Not Given BID [facility] Enoxaparin Sodium 30 mg 11/08/16 14:30 Lovenox SQ DAILY [facility] Hydrocortisone Sodium Succinate 100 mg 11/08/16 08:15 11/08/16 10:43 Solu-Cortef IV 100 mg Q8HR [facility] Administration Cefepime HCl 2 gm/ Sodium 50 mls @ 100 mls/hr 11/08/16 09:00 11/08/16 10:39 Chloride IVPB 100 mls/hr Q12HR [facility] Administration Levofloxacin 750 mg/ IV 150 mls @ 100 mls/hr 11/08/16 21:00 Solution IVPB Q24H [facility] Norepinephrine Bitartrate 16 266 mls @ 0 mls/hr 11/08/16 08:15 mg/ Sodium Chloride IV .Q0M [facility] Protocol Titrate Vancomycin HCl 1,250 mg/ 250 mls @ 125 mls/hr 11/09/16 08:00 Sodium Chloride IVPB Q24HR@0800 [facility] Dopamine HCl/Dextrose 800 mg/ 500 mls @ 13.78 mls/hr 11/08/16 08:30 11/08/16 10:20 IV Solution IV Not Given .Q24H [facility] Protocol 5 MCG/KG/MIN Propofol 500 mg/ IV Solution 50 mls @ 0 mls/hr 11/08/16 08:30 11/08/16 10:15 IV 50 mcg/kg/min .Q0M [facility] 22.05 mls/hr Protocol Administration Titrate Levothyroxine Sodium 300 mcg 11/08/16 10:30 11/08/16 10:51 Synthroid PO Not Given MoTuWeThFr@0630 [facility] Levothyroxine Sodium 150 mcg 11/09/16 06:30 Synthroid PO SUSA [facility] Nitroglycerin 0.4 mg 11/08/16 10:17 Nitrostat SUBLINGUAL Q5M PRN Chest Pain Pantoprazole Sodium 40 mg 12/30/16 14:30 Protonix IVP DAILY [facility] Intake and Output 11/08/16 11/08/16 11/08/16 06:59 14:59 22:59 Intake Total 620 800 100 Output Total 14 160 45 Balance 606 640 55 Intake: IV 550 100 Sodium Chloride 0.9% 1, 300 100 000 ml @ 100 mls/hr IV . Q10H [facility] Rx#:[id number] Vancomycin 1,250 mg In 250 Sodium Chloride 0.9% 250 ml @ 125 mls/hr IVPB ONCE ONE Rx#:[id number] Blood Product 620 250 Rc As-1 Unit 310 [id number] Rc Cpda-1 Unit 0 250 [id number] Output: Urine 160 45 Post Void Residual 14 Other: Voiding Method Diaper Indwelling Catheter # Bowel Movements 0 Weight 73.5 kg 73.5 kg Patient Weight 11/09/16 06:59 Weight 73.5 kg 11/08/16 09:04 11/08/16 09:04 EKG Interpretations (text) Sinus rhythm and sinus bradycardia with first-degree heart block and LVH. Assessment and Plan (1) Hypercapnic respiratory failure Status: Acute (2) Anemia Status: Acute (3) Disruption or dehiscence of closure of sternum or sternotomy Status: Acute (4) Acute exacerbation of chronic obstructive airways disease Status: Acute (5) Congestive heart failure Status: Acute (6) Status post aorto-coronary artery bypass graft Status: Acute (7) History of pancreatic cancer Status: Chronic Plan: Continue respiratory support and and also support with vasopressors. He IV antibiotics and being continued. We'll administer diuretics as needed. The rest of the medication be resumed as tolerated. Prognosis is guarded. We'll may also get an echocardiogram within next 24 hours.
[2016-11-08] MEDS: PANTOPRAZOLE 40 MG/10 ML VIAL IVP SCH (16:35)
[2016-11-08] MEDS: ENOXAPARIN 30 MG/0.3 ML SYRINGE SQ SCH (16:35)
[2016-11-08] MEDS ORDERED: LEVOFLOXACIN 750MG-D5W PMX 750 MG in DEXTROSE/WATER 1 150ML.BAG IVPB SCH ×2 (17:15→21:00)
[2016-11-08] MEDS ORDERED: MIRTAZAPINE 15 MG TAB PO SCH (17:30)
[2016-11-08] MEDS: ASPIRIN 325 MG TAB PO SCH (17:53)
[2016-11-08] MEDS ORDERED: Potassium Replacement Protocol 1 EACH MISC MISCELLANE PRN (22:48)
[2016-11-08] MEDS ORDERED: Magnesium Replacement Protocol 1 EACH MISC MISCELLANE PRN (22:50)
[2016-11-08] MEDS ORDERED: POTASSIUM CHLORIDE ORAL LIQUID 40 MEQ/30 ML CUP NG-TUBE SCH (23:00)
[2016-11-08] MEDS: MAGNESIUM SULFATE-D5W PMX 1 GM in DEXTROSE/WATER 1 100ML.BAG IVPB SCH (23:45)
[2016-11-09] MEDS: MAGNESIUM SULFATE-D5W PMX 1 GM in DEXTROSE/WATER 1 100ML.BAG IVPB SCH (01:01)
[2016-11-09] MEDS: PROPOFOL 500 MG in EMPTY BAG 1 BAG IV SCH ×8 (01:02→20:58)
[2016-11-09] MEDS ORDERED: PROPOFOL 50 ML IV ONE ×5 (02:12→15:04)
[2016-11-09] MEDS: LEVOTHYROXINE 75 MCG TAB PO SCH (05:09)
[2016-11-09 05:12] LABS: Anisocytosis Slight; CH 32.7; CHCM 32.4; HCT 28.5 % (39.0-53.0); HDW 3.35; HGB 9.4 gm/dL (13.0-17.5); Hypochromasia Slight; MCH 33.9 pg (25.0-35.0); MCHC 33.1 g/dL (31.0-37.0); Macrocytosis Moderate; Mean Platelet Volume 7.9; RBC 2.79 m/uL (4.30-5.90); RDW 19.2 % (11.5-15.5); WBC 9.1 k/uL (3.8-10.6)
[2016-11-09 05:20] LABS: MCV 102.2 fL (80.0-100.0)
[2016-11-09 05:26] LABS: Calcium 8.2 mg/dL (8.4-10.2); Magnesium 2.2 mg/dL (1.6-2.3); Phosphorous 3.8 mg/dL (2.5-4.5); Potassium 3.7 mmol/L (3.5-5.1)
[2016-11-09] MEDS: POTASSIUM CHLORIDE 10 MEQ, LIDOCAINE 2% INJ 10 MG in SODIUM CHLORIDE 0.9% 100 ML IV SCH ×2 (06:35→10:43)
--- NOTE | 2016-11-09 07:17 | XR ---
EXAMINATION TYPE: XR chest 1V portable DATE OF EXAM: 11/09/2016 6:32 AM COMPARISON: 11/08/2016 HISTORY: Shortness of breath FINDINGS: There are bilateral pleural effusions with cardiomegaly and bibasilar infiltrate. There is a diffuse interstitial pattern. PICC line, ET and NG tube stable in position. Postsurgical underlying COPD suspected. Chronic rib def ormity is noted. IMPRESSION: 1. COPD with diffuse interstitial pattern and pleural effusion with consolidation pattern suggestive of CHF. Correlate clinically to exclude underlying pneumonia.
[2016-11-09] MEDS: IPRATROPIUM-ALBUTEROL 3 ML NEB INHALATION PRN ×4 (07:45→19:46)
[2016-11-09 08:54] LABS: ABG Base Excess -0.6 mmol/L; ABG HCO3 23 mmol/L (21-25); ABG Oxygen Saturation 99.6 % (94-97); ABG PCO2 33 mmHg (35-45); ABG PH 7.46 (7.35-7.45); ABG PO2 172 mmHg (83-108); ABG TCO2 24 mmol/L (19-24)
[2016-11-09] MEDS: PANTOPRAZOLE 40 MG/10 ML VIAL IVP SCH (09:26)
[2016-11-09] MEDS ORDERED: FUROSEMIDE 10 MG/ML 2 ML VIAL IV STA (10:26)
[2016-11-09] MEDS: HYDROCORTISONE SUCCINATE 100 MG/2 ML VIAL IV SCH ×2 (10:43→15:50)
[2016-11-09] MEDS: ASPIRIN 325 MG TAB PO SCH ×2 (10:43→17:48)
[2016-11-09] MEDS: CARVEDILOL 6.25 MG TAB PO SCH ×2 (10:43→17:48)
[2016-11-09] MEDS: VANCOMYCIN 1,250 MG in SODIUM CHLORIDE 0.9% 250 ML IVPB SCH (10:43)
[2016-11-09] MEDS: ENOXAPARIN 30 MG/0.3 ML SYRINGE SQ SCH (10:44)
[2016-11-09] MEDS: DOPamine DRIP 800 MG in DEXTROSE/WATER 1 500ML.BAG IV SCH (10:44)
[2016-11-09] MEDS: CEFEPIME 2 GM in SODIUM CHLORIDE 0.9% 50 ML IVPB SCH (10:44)
[2016-11-09] MEDS: CHLORHEXIDINE GLUCONATE 15 ML CUP MUCOUS MEM SCH ×2 (10:44→20:58)
--- NOTE | 2016-11-09 13:18 | P.PN ---
Subjective Principal diagnosis: Acute hypercapnic respiratory failure This is an 86-year-old white male with history of multiple medical problems, patient was brought in last night from [facility] with multiple complaints including lack of activity, weakness, poor appetite, shortness of breath, dry cough, patient has recent complex medical problems including recent cardiac surgery with complications related to sternal wound dehiscence, recent fall and hip fracture requiring surgery, and the patient has been in rehab recovering from his most recent surgeries. Patient has also been undergoing wound debridement, and wound VAC placement for his sternal wound. Upon arrival to the ER, patient was noted to have a low hemoglobin of 6.5. He was admitted for blood transfusion, and apparently early this morning patient was receiving his second unit of packed RBCs when he was noted to be calm bradycardic, hypotensive , and obtunded. Hence the patient was seen by the A team and he was transferred to the intensive care unit. Upon arrival to the ICU, patient was noted to be hypotensive and bradycardic, he was given atropine, placed on norepinephrine for low blood pressure, and ABG was performed. His ABG showed a significantly elevated pCO2 of 130, and his pH was just below 7. I was notified about this patient and about the ABG, and I recommended immediate intubation of the patient. Patient was placed on mechanical ventilation, kept on norepinephrine for low blood pressure, his heart rate responded well and upon my evaluation was in the low 80s. His lactic acid was less than 0.5 troponins were also normal TSH was noted to be elevated. His urinalysis was relatively unremarkable. Renal profile worsened from creatinine of 1.46 to creatinine of 1.80. Shortly after mechanical ventilation, repeat ABG showed a pO2 of 89 pCO2 of 50 to pH of 7.29 and this was on 80% FiO2. Chest x-ray showed mild congestive changes and COPD findings with residual small pleural effusions CT of the brain showed no evidence of acute intracranial hemorrhage or acute ischemic changes. Chronic small vessel ischemic changes noted serum cortisol is pending at the time of my dictation, patient was given 100 mg of Solu-Cortef earlier. All his meds were reviewed patient is presently on DuoNeb updrafts, Corag for LV dysfunction cefepime, dopamine, Levaquin, Synthroid, propofol, vancomycin patient will also be placed on GI and DVT prophylaxis. Patient was reevaluated today on 11/09/2016, he remains on mechanical ventilation, and his ventilator settings have not changed much except I cut down his FiO2 to 35%. And his rate will be cut down to 12. ABG this morning showed a pO2 of 172 pCO2 of 33 pH of 7.46 CBC showed a hemoglobin of 9.4, stable since he received a 2 units of packed RBCs yesterday. Basic metabolic profile is relatively normal his BUN is coming down to 40 and creatinine is improving from 1.80 yesterday to 1.60 today. Chest x-ray showed evidence of mild congestive heart failure, hence the patient will receive a dose of Lasix today. My plan today will be to consider a weaning trial if the patient is noted to be appropriate after sedation holiday. If he does seem to be appropriate, may consider weaning and extubation. If not the patient will be kept on mechanical ventilation for another 24 hours. In the meantime I discussed his condition with his at bedside. Patient clearly has some secretions in the endotracheal tube, and that by itself alone may delay the weaning and extubation trial. Objective - Vital Signs Vital signs: Vital Signs Temp 98.1 F 11/09/16 12:00 Pulse 65 11/09/16 13:00 Resp 26 H 11/09/16 13:00 BP 140/77 11/09/16 13:00 Pulse Ox 99 11/09/16 13:00 Intake & Output 11/08/16 11/09/16 11/09/16 18:59 06:59 18:59 Intake Total 1296.771 815.090 555.024 Output Total 325 670 425 Balance 971.771 145.090 130.024 Weight 73.5 kg 70.6 kg 70.6 kg Intake: IV 950 150 90 0.9 90 Sodium Chloride 0.9% 1, 700 150 000 ml @ 100 mls/hr IV . Q10H [facility] Rx#:[id number] Vancomycin 1,250 mg In 250 Sodium Chloride 0.9% 250 ml @ 125 mls/hr IVPB ONCE ONE Rx#:[id number] Intake, IV Titration 96.771 665.090 465.024 Amount Cefepime 2 gm In Sodium 50 Chloride 0.9% 50 ml @ 100 mls/hr IVPB Q12HR [facility] Rx #:[id number] Magnesium Sulfate-D5w Pmx 200 1 gm In Dextrose/Water 1 100ml.bag @ 100 mls/hr IVPB Q1H [facility] Rx#: [id number] Potassium Chloride 10 meq 100 Lidocaine 2% Inj 10 mg In Sodium Chloride 0.9% 100 ml @ 100 mls/hr IV Q1HR [facility] Rx#:[id number] Propofol 50 ml As IV .STK 88.4 -[facility] Rx#:[id number] Propofol 50 ml As IV .STK 44.2 -[facility] Rx#:[id number] Propofol 50 ml As IV .STK 110.5 22.1 -[facility] Rx#:[id number] Propofol 500 mg In Empty 96.771 221.990 42.924 Bag 1 bag @ Titrate IV . Q0M [facility] Rx#:[id number] Vancomycin 1,250 mg In 250 Sodium Chloride 0.9% 250 ml @ 125 mls/hr IVPB Q24HR@0800 [facility] Rx#: [id number] Oral 0 0 Blood Product 250 Rc Cpda-1 Unit 250 [id number] Output: Urine 325 670 425 Other: Voiding Method Indwelling Catheter Indwelling Catheter Indwelling Catheter # Bowel Movements 0 ABP, PAP, CO, CI - Last Documented Arterial Blood Pressure 122/51 - Exam Physical Exam: Revealed an 86-year-old white male, unresponsive, on mechanical ventilation, looks pale and chronically ill. Patient is on propofol which I plan to hold and assess mental status off sedation. HEENT:[Neck is supple.] [No neck masses.] [No thyromegaly.] [No JVD.] Endotracheal tube is intact, patient looks pale. Chest: [Minimal crackles at the bases, no rhonchi and no wheezes.] Cardiac Exam: [Normal S1 and S2, no S3 gallop, 2/6 systolic murmur throughout the precordium.] Abdomen: [Soft, nontender, no megaly, no rebound, no guarding, normal bowel sounds.] Extremities: [No clubbing, no edema, no cyanosis.] Neurological Exam: Cannot be assessed, patient is fully sedated, however he seems to move upper extremities to deep painful stimuli. - Labs CBC & Chem 7: 11/09/16 04:55 11/09/16 04:55 Labs: Abnormal Lab Results - Last 24 Hours (Table) 11/09/16 11/09/16 11/09/16 Range/Units 04:55 04:55 07:52 RBC 2.79 L (4.30-5.90) m/uL Hgb 9.4 L (13.0-17.5) gm/dL Hct 28.5 L (39.0-53.0) % MCV 102.2 H D (80.0-100.0) fL RDW 19.2 H (11.5-15.5) % ABG pH 7.46 H (7.35-7.45) ABG pCO2 33 L (35-45) mmHg ABG pO2 172 H (83-108) mmHg ABG O2 Saturation 99.6 H (94-97) % Chloride 111 H (98-107) mmol/L BUN 40 H (9-20) mg/dL Creatinine 1.60 H (0.66-1.25) mg/dL Glucose 105 H (74-99) mg/dL Calcium 8.2 L (8.4-10.2) mg/dL Microbiology - Last 24 Hours (Table) 11/08/16 07:00 Urine Culture - Final Urine,Catheterized 11/08/16 09:00 Gram Stain - Preliminary Sputum Sputum Culture - Preliminary Assessment and Plan Plan: Impression: 1 acute hypercapnic respiratory failure, exact etiology is not clear, obviously the patient has underlying COPD, and he presented with profound anemia and possible sepsis, apparently his respiratory status deteriorated secondary to congestive heart failure, may or may not be related to blood transfusion, and the patient went on to develop significant respiratory muscle fatigue and profound hypercapnia. That resulted in mental status change and CO2 narcosis. No evidence of CVA noted on the CT of the brain. After reviewing the chart, there is no evidence where the patient received any narcotics or significant respiratory depressants to explain his acute hypercapnia. I believe his acute hypercapnia and respiratory failure is multifactorial, secondary to severe underlying COPD, congestive heart failure cardiomyopathy and LV dysfunction, profound anemia, and possible sepsis. The medications including Remeron Xanax and Benadryl may have also contributed to his acute hypercapnia. Recommendation: Patient will be kept on mechanical ventilation, antibiotics, hemodynamic support including the use of pressors, fluids but cautiously, we'll correct his anemia obviously it was already corrected with 2 units of packed RBCs. GI and DVT prophylaxis and will continue to follow closely. Multiple comorbidities including history of severe coronary artery disease and previous CABG, cardiomyopathy and LV dysfunction, ejection fraction of 30 percent, history of previous CVA and TIA history of hypothyroidism on replacement therapy, history of iron deficiency anemia history of sternal wound infection and dehiscence patient had a wound VAC in place and it was removed by the thoracic surgeon on the case. History of pancreatic cancer Overall prognosis is definitely poor and guarded, we'll continue to follow closely. Critical care time is 35 minutes. My plan today will be to adjust his ventilator settings, and consider weaning trial if the patient seems to be appropriate upon sedation holiday. Time with Patient: Greater than 30
--- NOTE | 2016-11-09 15:46 | ECHOF ---
Referral Reason:Chest pain and cardiomyopathy MEASUREMENTS -------- HEIGHT: 182.9 cm WEIGHT: 73.5 kg BP: 143/76 RVIDd: 3.3 cm (< 3.3) IVSd: 1.3 cm (0.6 - 1.1) LVIDd: 4.9 cm (3.9 - 5.3) LVPWd: 1.3 cm (0.6 - 1.1) IVSs: 1.5 cm LVIDs: 4.3 cm LVPWs: 1.5 cm LA Diam: 4.9 cm (2.7 - 3.8) LAESV Index (A-L): 49.82 ml/m Ao Diam: 3.5 cm (2.0 - 3.7) AV Cusp: 1.4 cm (1.5 - 2.6) MV EXCURSION: 14.013 mm (> 18.000) MV EF SLOPE: 23 mm/s (70 - 150) EPSS: 1.9 cm MV E Johann: 1.34 m/s MV DecT: 190 ms MV A Johann: 0.86 m/s MV E/A Ratio: 1.56 AV maxP.72 mmHg AV meanP.33 mmHg RAP: 15.00 mmHg RVSP: 52.61 mmHg FINDINGS -------- Sinus rhythm. This was a technically adequate study. The left ventricular size is normal. There is mild concentric left ventricular hypertrophy. Overall left ventricular systolic function is moderate-severely impaired with, an EF between 30 - 35 %. Anterseptal Hypokinesis Lateral hypokinesis [place] Hypokinesis. The right ventricle is mildly enlarged. LA is severely dilated >40 ml/m2 The right atrium is normal in size. Aortic valve is trileaflet and is moderately thickened. There is mild aortic regurgitation. Peak/mean gradient across the Aortic Valve is 13.72mmHg / 8.33mmHg. The mitral valve leaflets are mildly thickened. The peak and mean MV gradients are 9.78mmHg 3.67mmHg as measured by doppler. Mitral ring annulloplasty is in place. Mild tricuspid regurgitation present. There is moderate pulmonary hypertension. The right ventricular systolic pressure, as measured by Doppler, is 52.61mmHg. The pulmonic valve was not well visualized. The aortic root size is normal. The inferior vena cava is dilated with no significant inspiratory collapse which is consistent estimated right atrial pressure of >15 mmHg. There is no pericardial effusion. CONCLUSIONS -------- 1. Sinus rhythm. 2. Aortic valve is trileaflet and is moderately thickened. 3. There is mild aortic regurgitation. 4. Peak/mean gradient across the Aortic Valve is 13.72mmHg / 8.33mmHg. 5. The mitral valve leaflets are mildly thickened. 6. The peak and mean MV gradients are 9.78mmHg 3.67mmHg as measured by doppler. 7. Mitral ring annulloplasty is in place. 8. Mild tricuspid regurgitation present. 9. There is moderate pulmonary hypertension. 10. The pulmonic valve was not well visualized. 11. The aortic root size is normal. 12. This was a technically adequate study. 13. The inferior vena cava is dilated with no significant inspiratory collapse which is consistent estimated right atrial pressure of >15 mmHg. 14. There is no pericardial effusion. 15. There is mild concentric left ventricular hypertrophy. 16. Overall left ventricular systolic function is moderate-severely impaired with, an EF between 30 - 35 %. 17. Anterseptal Hypokinesis 18. Lateral hypokinesis 19. [place] Hypokinesis. 20. The right ventricle is mildly enlarged. 21. LA is severely dilated >40 ml/m2 [employer]: Christel Davila RDCS
[2016-11-09] MEDS ORDERED: POTASSIUM CHLORIDE ORAL LIQUID 40 MEQ/30 ML CUP NG-TUBE SCH (18:00)
--- NOTE | 2016-11-09 18:15 | HP ---
DATE OF ADMISSION: 11/07/2016 CHIEF COMPLAINT: Altered mental status. This is an 86-year-old male with past medical history significant for recent cardiac open heart surgery with complication related to sternal wound dehiscence. The patient was [facility] to the [facility] with wound VAC in place on the mediastinum and patient was at the prison recovering with poor improvement. Patient was brought to the emergency with altered mental status and shortness of breath, and was found to have a hemoglobin of 6.5. ABG showed elevated CO2 and worsening pH where the patient was extremely acidotic. The patient was intubated and transferred to the intensive care unit and Dr. Paredes was consulted. at the bedside who said that the patient has poor healing course at the prison and he has been doing miserably since discharge from the hospital after his open heart surgery. The patient's was informed that the wound is not healing and even with the wound VAC, he is still having a lot of drainage at the time. This morning his wound VAC machine was positive for minimal amount of drainage and seems to be healing and normal range. Patient this morning, seems to be improving where he is opening his eyes to voice commands, and following simple commands, moving all 4 extremities and upper extremities were placed in soft restraints due to patient's agitating and moving his arm and some pulling on tubes and trachs. at the bedside who had multiple concerns and questions all discussed with the patient's at length. REVIEW OF SYSTEMS: Unable to acquire due to patient's intubation. PAST MEDICAL HISTORY: 1. Coronary artery disease. 2. Congestive heart failure. 3. Chronic obstructive pulmonary disease. 4. History of CVA. 5. GERD. 6. Hyperlipidemia. 7. Hypertension. 8. Osteoarthritis. 9. Prostate disorder. 10. Thyroid disease. 11. Prostate cancer. 12. TIAs. 13. Peripheral arterial disease. 14. Diverticulosis. 15. Anemia. PAST SURGICAL HISTORY: 1. Recent open heart surgery with nonhealing sternum wound. 2. Endarterectomy on the left. 3. Hip surgery secondary to hip fracture in July 2016 ( ). 4. Adenoidectomy. 5. Appendectomy. 6. Cholecystectomy. 7. Bypass surgery. 8. Cardiac catheterization. 9. Hernia repair. 10. Tonsillectomy. 11. Whipple procedure 2006. 12. Nasal polyp in 1995. SOCIAL HISTORY: No tobacco, alcohol or drug abuse. Patient used to live with his . FAMILY HISTORY: Father with coronary artery disease. Mother with no reported history. HOME MEDICATIONS: 1. Allopurinol. 2. Ascorbic acid. 3. Ferrous Sulfate. 4. Iron. 5. Levothyroxine. 6. Atorvastatin. 7. Florinef. 8. Aspirin. 9. Plavix. 10. Terazosin. 11. Calcium. 12. B12. 13. Pepcid. 14. DuoNeb. 15. Remeron. 16. Senna. 17. Norvasc. ALLERGIES: PENICILLIN that caused him itching and TOMATO that caused him unknown reaction. In the emergency department his vital signs revealed 97/49 blood pressure, respiratory rate 16, heart rate of 87, saturation is 100% on 40% full vent support. Currently with PEEP of 5 and the patient seems to be tolerating well. HEENT: Atraumatic, normocephalic. PERRLA. NECK: Supple, no masses. No thyromegaly. LUNGS: Coarse breathing sounds bilaterally. HEART: S1, S2. ABDOMEN: Soft, no distention. Positive bowel sounds in all 4 quadrants. Mediastinum wound VAC in place. GENITOURINARY: Ayoub catheter positive for urine in the bag, clear in color without sediment with good rate above 50 mL/h. SKIN: No obvious rash. NEURO: Unable to assess. PSYCH: Patient is lethargic. Imaging and labs: Upon arrival to the emergency. Hemoglobin was found to be low. Glucose 133, creat is 1.80, BUN 38 and sodium was 148. ABG revealed 7.29, pCO2 of 52 and pO2 of 89. ASSESSMENT AND PLAN: 1. Acute hypercapnic respiratory failure, etiology is still unclear. I discussed with the patient's that urology would like to be multifactorial including congestive heart failure exacerbation with fluid overload status exacerbated with severe protein calorie malnutrition and anasarca plus underlying chronic obstructive pulmonary disease plus underlying possible infection with alteration in mental status and respiratory distress on the top of his bradycardia on presentation when heart rate was found to be in the 40s. Currently, would like to optimize his medical management, keep the patient on full vent support, wean him off as tolerated. Patient with slight improvement since yesterday, following simple commands. CT was done and negative for intracranial bleed, moving all 4 extremities making possibility of cerebrovascular accident is less likely at this point. We would like to continue optimizing his medical management and follow-up with critical care recommendation. 2. Hypernatremia, likely secondary to intravascular depletion. We will continue with gentle hydration and monitor in the intensive care unit setting. 3. Coronary artery disease, status post CABG with wound dehiscence and wound VAC placement. We will consult cardiothoracic surgery for follow up during this hospital stay. 4. History of cerebrovascular accident. Will continue evidence-based medicine including aspirin, Plavix and statin. 5. Peripheral arterial disease, status post endarterectomy on the left. Will continue evidence-based medicine. 6. Hypothyroidism. Will continue home regimen and TSH was checked from previous admission and seems to be appropriate. 7. Anemia. We will consider transfusion as needed. 8. Chronic kidney disease. The patient will be monitored in the intensive care unit. Will avoid nephrotoxic medication and continue gentle hydration at this point with diuretics use. 9. Questionable spread of the infection in the wound and wound infection itself. I would like to continue with the cefepime at this point. Follow up on culture results and taper the antibiotics down based on culture results. 10. Gastrointestinal prophylaxis. We will continue Protonix. 11. Deep venous thrombosis prophylaxis, patient on Lovenox. 12. Prognosis is poor.
--- NOTE | 2016-11-09 18:18 | PN ---
Mr. Bill is an 86 -year-old male status post coronary artery bypass grafting, history of dehiscence of his sternal wound who presented with anemia requiring transfusions and while he was getting transfused he became bradycardic, hypotensive and subsequently apneic requiring mechanical ventilation. He is intubated. He is more awake. He is following some commands. He denies any ( ). There is no evidence of significant hemodynamic imbalance at this time. His blood pressure and heart rate has been stable and his urine output has been good. He is not receiving any sedation at this point. He had an echocardiogram performed today and the results are pending. He continues to be on Coreg 6.25 mg twice a day, Levofloxacin, levothyroxine, Protonix. PHYSICAL EXAMINATION: Blood pressure 154/80 with a heart in the 70s. LUNGS: Clear anteriorly. HEART: Regular rate and rhythm. S1, S2, no S3, with a systolic murmur. No rub. ABDOMEN: Soft, positive bowel sounds. EXTREMITIES: Trace to 1+ edema. Sternal vacuum was noted. Lab data revealed a BUN and creatinine 40 and 1.6 which has improved compared with yesterday. pH 7.46, pCO2 33, pO2 of 172. Hemoglobin of 9.4. On presentation, his hemoglobin was 6.5. His troponin is 0.013. IMPRESSION: 1. Respiratory failure, multifactorial. Could have an element of reaction to the transfusion. There is no evidence to suggest acute ischemic event that could be related to sepsis. 2. Status post coronary artery bypass grafting. 3. Sternal wound dehiscence. 4. Anemia. 5. History of cardiomyopathy. 6. History of cerebrovascular accident in the past. RECOMMENDATION: We will continue supportive care at this time. Hopefully, his mental status will improve. He will be weaned and extubated soon. We will follow his renal function and hemoglobin and depending on his progress, further recommendation will be made.
--- NOTE | 2016-11-09 19:04 | P.CONS ---
History of Present Illness - Chief Complaint Shortness of breath - History of Present Illness This is an 86-year-old male who has a past medical history significant for coronary artery disease status post recent coronary artery bypass graft on 06/10/2016 with COPE to LAD, reverse saphenous vein graft to the marginal branch and right internal mammary artery to the right coronary artery and mitral valve repair using a #32 Annuloflex ring. His hospitalization was Located by acute kidney injury and acute psychosis along with weight loss and patient was discharged to [facility] for rehabilitation. Patient subsequently was found to be in acute systolic heart failure and started on diuretics but not improved enough and was transferred to [facility] emergency center on July 15, treated for acute on chronic systolic heart failure and significant bilateral pleural effusions more on the left. and was discharged back to [facility] on July 23. She is 4 while at [facility], patient got up to the bathroom using his walker and his is assisting him and he ended up falling and landing on his left side it was transported back to [facility] found to have a left hip fracture. Patient was admitted to the surgical unit and has been seen in consultation by cardiology. Surgery was delayed due to use of Plavix which was held. On August 08, he underwent closed reduction and intramedullary hip screw fixation in the left hip. This course is also been complicated by acute delirium thought to be related to medications and Dilaudid was discontinued as well as Remeron Lasix and potassium and Pepcid. Patient's mental status has improved but not quite back to baseline. While at the senior living, patient was noted to have opening of the inferior portion of the sternal wound from his open heart surgery. He did follow-up and local wound care was in process. Consult was placed with cardiothoracic surgeon with recommendations to continue local wound care. There is no purulent drainage or erythema. CAT scan of the chest was done reveal evidence of the dehiscence of the sternal wound. Cardiothoracic surgery did not believe there was significant infection, cultures were negative and he was treated with some local wound care. He was discharged back to the extended care facility for ongoing care of the sternal wound as well as of the hip fracture. Patient was found evidence of an JUSTEN inhibitor Bactrim infection of the sternum and was treated with a course of intravenous amikacin. This has been completed and the sternum is been showing improvement. Then following the wound center with Dr. Castro. Now presents with respiratory failure and anemia. Review of Systems ROS unobtainable: due to endotracheal tube Past Medical History Past Medical History: Coronary Artery Disease (CAD), Cancer, Heart Failure, COPD , CVA/TIA, GERD/Reflux, Hyperlipidemia, Hypertension, Osteoarthritis (OA), Prostate Disorder, Thyroid Disorder Additional Past Medical History / Comment(s): pancreatic ca-2006, history of mini strokes, history of carotid endarterectomy on the left for carotid artery disease, diverticulosis, iron deficiency anemia/MGUS, CVA/TIA, hyperlipidemia, hypertension, osteoarthritis, hypothyroidism FX LT HIP IN JUL-2016 NON-HEALING CHEST WALL WOUND(HAD OPEN HEART RECENTLY), PER [facility] SHEETS 02 2 LITERS, OCC INCONT OF URINE. PT CURRENTLY W/C OF LIFT History of Any Multi-Drug Resistant Organisms: Acinetobacter (MDRO) Year Discovered:: 08/20/2016 MDRO Source:: chest Past Surgical History: Adenoidectomy, Appendectomy, Cholecystectomy, Coronary Bypass/CABG, Heart Catheterization, Hernia Repair, Tonsillectomy Additional Past Surgical History / Comment(s): Hernia repair in 1999, 2009, and 2011, Whipple procedure August 2007, left carotid endarterectomy 1995, nasal polyp 1995,NASAL RECONSTRUCTIVE SX, PROSTATE BX, CABG x3 & mitral vaule repair and exclusion of JESÚS. 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 RAI AT [facility] FOR REHAB. Smoking Status: Never smoker Past Alcohol Use History: None Reported Past Drug Use History: None Reported - Past Family History Father Family Medical History: Coronary Artery Disease (CAD), Myocardial Infarction ([place] ) Additional Family Medical History / Comment(s): THROMBOSIS Mother Family Medical History: No Reported History Additional Family Medical History / Comment(s): MOM LIVED TO BE 105- FROM OLD AGE Brother(s) Family Medical History: Coronary Artery Disease (CAD), Pneumonia Sister(s) Family Medical History: Pneumonia Son(s) Family Medical History: No Reported History Daughter(s) Family Medical History: No Reported History Medications and Allergies Home Medications and Allergies Comment(s): Current Medications Albuterol/Ipratropium (Duoneb 0.5 Mg-3 Mg/3 Ml Soln) 3 ml INHALATION RT-Q4H PRN PRN Reason: Shortness Of Breath Or Wheezing Last Admin: 11/09/16 15:31 Dose: 3 ml Aspirin (Aspirin) 325 mg PO BID@0800,1700 [facility] Last Admin: 11/09/16 17:48 Dose: 325 mg Carvedilol (Coreg) 6.25 mg PO BID-W/MEALS [facility] Last Admin: 11/09/16 17:48 Dose: 6.25 mg Chlorhexidine Gluconate (Peridex) 15 ml MUCOUS MEM BID [facility] Last Admin: 11/09/16 10:44 Dose: 15 ml Enoxaparin Sodium (Lovenox) 40 mg SQ DAILY [facility] Hydrocortisone Sodium Succinate (Solu-Cortef) 100 mg IV Q8HR [facility] Last Admin: 11/09/16 15:50 Dose: 100 mg Norepinephrine Bitartrate 16 (mg/ Sodium Chloride) 266 mls @ 0 mls/hr IV .Q0M [facility]; Titrate PRN Reason: Protocol Vancomycin HCl 1,250 mg/ (Sodium Chloride) 250 mls @ 125 mls/hr IVPB Q24HR@ 0800 [facility] Last Admin: 11/09/16 10:43 Dose: 125 mls/hr Dopamine HCl/Dextrose 800 mg/ (IV Solution) 500 mls @ 13.78 mls/hr IV .Q24H NIKITA ; 5 MCG/KG/MIN PRN Reason: Protocol Last Admin: 11/09/16 10:44 Dose: Not Given Propofol 500 mg/ IV Solution 50 mls @ 0 mls/hr IV .Q0M [facility]; Titrate PRN Reason: Protocol Last Admin: 11/09/16 17:48 Dose: 30 mcg/kg/min, 13.23 mls/hr Levofloxacin 750 mg/ IV (Solution) 150 mls @ 100 mls/hr IVPB Q48H [facility] Cefepime HCl 2 gm/ Sodium (Chloride) 50 mls @ 100 mls/hr IVPB Q24HR [facility] Last Admin: 11/09/16 10:44 Dose: 100 mls/hr Levothyroxine Sodium (Synthroid) 300 mcg PO MoTuWeThFr@0630 [facility] Last Admin: 11/08/16 10:51 Dose: Not Given Levothyroxine Sodium (Synthroid) 150 mcg PO SUSA [facility] Last Admin: 11/09/16 05:09 Dose: 150 mcg Miscellaneous Information (Magnesium Per Protocol) 1 each MISCELLANE DAILY PRN ; Protocol PRN Reason: Per Protocol Miscellaneous Information (Potassium Per Protocol) 1 each MISCELLANE DAILY PRN ; Protocol PRN Reason: Per Protocol Nitroglycerin (Nitrostat) 0.4 mg SUBLINGUAL Q5M PRN PRN Reason: Chest Pain Pantoprazole Sodium (Protonix) 40 mg IVP DAILY [facility] Last Admin: 11/09/16 09:26 Dose: 40 mg Home Medications Medication Instructions Recorded Confirmed Type Allopurinol [Zyloprim] 100 mg PO DAILY 05/31/14 11/07/16 History Ascorbic Acid [Vitamin C] 500 mg PO W/SUPPER 05/31/14 11/07/16 History Ferrous Sulfate [Feosol] 325 mg PO WESA 05/31/14 11/07/16 History Iron Polysaccharide Complex 150 mg PO W/SUPPER 05/31/14 11/07/16 History [Ferrex 150] Levothyroxine Sodium 300 mcg PO MOTUWETHFR 05/31/14 11/07/16 History Levothyroxine Sodium [Synthroid] 150 mcg PO SUSA 01/30/16 11/07/16 History Atorvastatin Calcium [Lipitor] 40 mg PO HS 07/15/16 11/07/16 History Fludrocortisone [Florinef] 0.05 mg PO DAILY 07/15/16 11/07/16 History Aspirin 325 mg PO BID@0800,1700 08/15/16 11/07/16 History Clopidogrel [Plavix] 75 mg PO W/SUPPER 08/15/16 11/07/16 History Terazosin [Hytrin] 5 mg PO DAILY 08/15/16 11/07/16 History Calcium Carbonate [Calcium] 600 mg PO BID 11/07/16 11/07/16 History Cyanocobalamin [Vitamin B-12] 1,000 mcg PO W/SUPPER 11/07/16 11/07/16 History Famotidine [Pepcid] 20 mg PO BID 11/07/16 11/07/16 History Ipratropium-Albuterol Nebulize 3 ml INHALATION RT-QID 11/07/16 11/07/16 History [Duoneb 0.5 mg-3 mg/3 ml Soln] Ipratropium-Albuterol Nebulize 3 ml INHALATION RT-QID PRN 11/07/16 11/07/16 History [Duoneb 0.5 mg-3 mg/3 ml Soln] Mirtazapine [Remeron] 15 mg PO W/SUPPER 11/07/16 11/07/16 History Sennosides [Senna] 8.6 mg PO BID 11/07/16 11/07/16 History amLODIPine [Norvasc] 5 mg PO DAILY 11/07/16 11/07/16 History Allergies Allergy/AdvReac Type Severity Reaction Status Date / Time hops Allergy Unknown Verified 11/07/16 21:08 Penicillins Allergy Itching Verified 11/07/16 21:08 tomato Allergy Unknown Verified 11/07/16 21:08 Physical Exam Vitals: Vital Signs Temp Pulse Pulse Resp BP Pulse Ox 11/09/16 18:00 66 12 148/74 100 11/09/16 17:00 63 41 H 148/72 100 11/09/16 16:12 66 11/09/16 16:00 97.4 F L 65 52 H 150/77 100 11/09/16 15:36 64 11/09/16 15:00 63 38 H 145/80 99 11/09/16 14:00 62 15 131/72 99 11/09/16 13:00 65 26 H 140/77 99 11/09/16 12:30 75 19 136/75 100 11/09/16 12:28 79 11/09/16 12:13 75 11/09/16 12:00 98.1 F 77 26 H 136/75 100 11/09/16 11:30 70 29 H 100 11/09/16 11:00 73 34 H 100 11/09/16 10:30 68 30 H 100 11/09/16 10:00 65 17 100 11/09/16 09:30 62 16 100 11/09/16 09:00 68 21 143/73 100 11/09/16 08:30 64 32 H 135/70 100 11/09/16 08:10 61 11/09/16 08:00 97.6 F 59 L 18 135/70 100 11/09/16 07:53 59 L 11/09/16 07:30 61 40 H 131/68 100 11/09/16 07:00 62 17 131/68 100 11/09/16 06:30 66 17 132/70 100 11/09/16 06:00 62 16 132/70 100 11/09/16 05:30 63 16 135/70 100 11/09/16 05:00 64 16 135/70 100 11/09/16 04:30 64 52 H 129/69 100 11/09/16 04:00 96.7 F L 64 73 33 H 129/69 100 11/09/16 03:30 65 43 H 128/64 100 11/09/16 03:00 66 16 128/64 100 11/09/16 02:30 73 16 119/63 100 11/09/16 02:00 71 16 119/63 100 11/09/16 01:30 72 16 120/59 100 11/09/16 01:00 72 16 120/59 100 11/09/16 00:30 71 17 116/61 100 11/09/16 00:00 98.8 F 76 73 18 116/61 100 11/08/16 23:30 73 16 123/63 100 11/08/16 23:00 74 17 123/63 100 11/08/16 22:30 74 16 119/63 100 11/08/16 22:00 75 16 119/63 100 11/08/16 21:30 80 16 126/67 100 11/08/16 21:00 75 16 126/67 100 11/08/16 20:30 77 16 100 11/08/16 20:00 98.4 F 77 77 17 100 11/08/16 19:39 75 11/08/16 19:30 75 54 H 100 11/08/16 19:25 78 11/08/16 19:00 78 62 H 99 Intake and Output 11/09/16 11/09/16 11/09/16 06:59 14:59 22:59 Intake Total 567.620 565.024 105.942 Output Total 490 825 410 Balance 77.620 -259.976 -304.058 Intake: IV 35 100 70 0.9 100 70 Sodium Chloride 0.9% 1, 35 000 ml @ 100 mls/hr IV . Q10H [facility] Rx#:[id number] Intake, IV Titration 532.620 465.024 35.942 Amount Cefepime 2 gm In Sodium 50 Chloride 0.9% 50 ml @ 100 mls/hr IVPB Q12HR [facility] Rx #:[id number] Magnesium Sulfate-D5w Pmx 200 1 gm In Dextrose/Water 1 100ml.bag @ 100 mls/hr IVPB Q1H [facility] Rx#: [id number] Potassium Chloride 10 meq 100 Lidocaine 2% Inj 10 mg In Sodium Chloride 0.9% 100 ml @ 100 mls/hr IV Q1HR [facility] Rx#:[id number] Propofol 50 ml As IV .STK 66.3 [facility] Rx#:[id number] Propofol 50 ml As IV .STK 110.5 22.1 [facility] Rx#:[id number] Propofol 500 mg In Empty 155.820 42.924 35.942 Bag 1 bag @ Titrate IV . Q0M [facility] Rx#:[id number] Vancomycin 1,250 mg In 250 Sodium Chloride 0.9% 250 ml @ 125 mls/hr IVPB Q24HR@0800 [facility] Rx#: [id number] Oral 0 0 Output: Urine 490 825 410 Other: Voiding Method Indwelling Catheter Indwelling Catheter Indwelling Catheter Weight 70.6 kg 70.6 kg 70.6 kg Patient Weight 11/10/16 06:59 Weight 70.6 kg ABP, PAP, CO, CI - Last 8 Hours Arterial Blood Pressure 144/64 Arterial Blood Pressure 145/61 Arterial Blood Pressure 147/63 Arterial Blood Pressure 147/63 Arterial Blood Pressure 136/57 Arterial Blood Pressure 122/51 Arterial Blood Pressure 156/72 Arterial Blood Pressure 150/70 Arterial Blood Pressure 144/64 Arterial Blood Pressure 164/73 Gen: This is an 86-year-old male. Intubated sedated and mechanically ventilated HEENT: Head is atraumatic, normocephalic. Pupils equal, round. Sclerae is anicteric. NECK: Supple. No JVD. No lymphadenopathy. No thyromegaly. LUNGS: Diminished in the bases but otherwise clear. No intercostal retractions. HEART: Irregular audible S1 and S2 positive S4 2/6 systolic murmur ABDOMEN: Soft. Bowel sounds are present. No masses. No tenderness. EXTREMITIES: No pedal edema. No calf tenderness.The left hip wound has dressing in place without drainage and seems to be doing relatively well. NEUROLOGICAL: Patient sedated and comfortable The sternal wound has a negative pressure therapy system in place. Please refer to the nursing photography for the most recent measurements and evaluation of this site. Much improved under the care of the wound center. No ongoing infection as been noted. Results CBC & Chem 7: 11/09/16 04:55 11/09/16 16:15 Labs: Abnormal Lab Results - Last 24 Hours (Table) 11/09/16 11/09/16 11/09/16 Range/Units 04:55 04:55 07:52 RBC 2.79 L (4.30-5.90) m/uL Hgb 9.4 L (13.0-17.5) gm/dL Hct 28.5 L (39.0-53.0) % MCV 102.2 H D (80.0-100.0) fL RDW 19.2 H (11.5-15.5) % ABG pH 7.46 H (7.35-7.45) ABG pCO2 33 L (35-45) mmHg ABG pO2 172 H (83-108) mmHg ABG O2 Saturation 99.6 H (94-97) % Chloride 111 H (98-107) mmol/L BUN 40 H (9-20) mg/dL Creatinine 1.60 H (0.66-1.25) mg/dL Glucose 105 H (74-99) mg/dL Calcium 8.2 L (8.4-10.2) mg/dL Microbiology - Last 24 Hours (Table) 11/08/16 07:00 Urine Culture - Final Urine,Catheterized 11/08/16 09:00 Gram Stain - Preliminary Sputum Sputum Culture - Preliminary Laboratory Results WBC 9.1 k/uL (3.8-10.6) 11/09/16 04:55 RBC 2.79 m/uL (4.30-5.90) L 11/09/16 04:55 Hgb 9.4 gm/dL (13.0-17.5) L 11/09/16 04:55 Hct 28.5 % (39.0-53.0) L 11/09/16 04:55 MCV 102.2 fL (80.0-100.0) H D 11/09/16 04:55 MCH 33.9 pg (25.0-35.0) 11/09/16 04:55 MCHC 33.1 g/dL (31.0-37.0) 11/09/16 04:55 RDW 19.2 % (11.5-15.5) H 11/09/16 04:55 Plt Count 165 k/uL (150-450) 11/09/16 04:55 Neutrophils % 71 % 11/08/16 09:04 Lymphocytes % 14 % 11/08/16 09:04 Monocytes % 10 % 11/08/16 09:04 Eosinophils % 2 % 11/08/16 09:04 Basophils % 0 % 11/08/16 09:04 Neutrophils # 3.7 k/uL (1.3-7.7) 11/08/16 09:04 Lymphocytes # 0.7 k/uL (1.0-4.8) L 11/08/16 09:04 Monocytes # 0.5 k/uL (0-1.0) 11/08/16 09:04 Eosinophils # 0.1 k/uL (0-0.7) 11/08/16 09:04 Basophils # 0.0 k/uL (0-0.2) 11/08/16 09:04 Hypochromasia Slight 11/09/16 04:55 Poikilocytosis Slight 11/08/16 09:04 Anisocytosis Slight 11/09/16 04:55 Macrocytosis Moderate 11/09/16 04:55 PT 11.2 sec (9.0-12.0) 11/07/16 20:57 INR 1.1 (<1.1) 11/07/16 20:57 APTT 27.6 sec (22.0-30.0) 11/07/16 20:57 Sample Site SURREY 11/09/16 07:52 ABG pH 7.46 (7.35-7.45) H 11/09/16 07:52 ABG pCO2 33 mmHg (35-45) L 11/09/16 07:52 ABG pO2 172 mmHg (83-108) H 11/09/16 07:52 ABG HCO3 23 mmol/L (21-25) 11/09/16 07:52 ABG Total CO2 24 mmol/L (19-24) 11/09/16 07:52 ABG O2 Saturation 99.6 % (94-97) H 11/09/16 07:52 ABG Base Excess -0.6 mmol/L 11/09/16 07:52 FiO2 40 % 11/09/16 07:52 Sodium 144 mmol/L (137-145) 11/09/16 04:55 Potassium 3.6 mmol/L (3.5-5.1) 11/09/16 16:15 Chloride 111 mmol/L (98-107) H 11/09/16 04:55 Carbon Dioxide 24 mmol/L (22-30) 11/09/16 04:55 Anion Gap 9 mmol/L 11/09/16 04:55 BUN 40 mg/dL (9-20) H 11/09/16 04:55 Creatinine 1.60 mg/dL (0.66-1.25) H 11/09/16 04:55 Est GFR (MDRD) Af Amer 50 (>60 ml/min/1.73 sqM) 11/09/16 04:55 Est GFR (MDRD) Non-Af 41 (>60 ml/min/1.73 sqM) 11/09/16 04:55 Glucose 105 mg/dL (74-99) H 11/09/16 04:55 POC Glucose (mg/dL) 168 mg/dL (75-99) H 11/08/16 05:52 POC Glu Frame Straightener RANGEL Shavonne Fermin 11/08/16 05:52 Plasma Lactic Acid Uvaldo 1.3 mmol/L (0.7-2.0) 11/08/16 09:16 Calcium 8.2 mg/dL (8.4-10.2) L 11/09/16 04:55 Phosphorus 3.8 mg/dL (2.5-4.5) 11/09/16 04:55 Magnesium 2.2 mg/dL (1.6-2.3) 11/09/16 04:55 Total Bilirubin 0.3 mg/dL (0.2-1.3) 11/07/16 20:57 AST 31 U/L (17-59) 11/07/16 20:57 ALT 49 U/L (21-72) 11/07/16 20:57 Alkaline Phosphatase 97 U/L (38-126) 11/07/16 20:57 Total Creatine Kinase 22 U/L (55-170) L 11/07/16 20:57 CK-MB (CK-2) 2.1 ng/mL (0.0-2.4) 11/07/16 20:57 CK-MB (CK-2) Rel Index 9.5 11/07/16 20:57 Troponin I 0.013 ng/mL (0.000-0.034) 11/08/16 21:00 Total Protein 5.8 g/dL (6.3-8.2) L 11/07/16 20:57 Albumin 2.9 g/dL (3.5-5.0) L 11/07/16 20:57 TSH 10.000 mIU/L (0.465-4.680) H 11/07/16 20:57 Cortisol 28 ug/dL 11/08/16 09:04 Urine Color Yellow 11/07/16 07:00 Urine Appearance Cloudy (Clear) 11/07/16 07:00 Urine pH 5.0 (5.0-8.0) 11/07/16 07:00 Ur Specific [place] 1.014 (1.001-1.035) 11/07/16 07:00 Urine Protein 1+ (Negative) H 11/07/16 07:00 Urine Glucose (UA) Negative (Negative) 11/07/16 07:00 Urine Ketones Negative (Negative) 11/07/16 07:00 Urine Blood Negative (Negative) 11/07/16 07:00 Urine Nitrate Negative (Negative) 11/07/16 07:00 Urine Bilirubin Negative (Negative) 11/07/16 07:00 Urine Urobilinogen <2.0 mg/dL (<2.0) 11/07/16 07:00 Ur Leukocyte Esterase Negative (Negative) 11/07/16 07:00 Urine WBC 1 /hpf (0-5) 11/07/16 07:00 Amorphous Sediment Few /hpf (None) H 11/07/16 07:00 Urine Mucus Rare /hpf (None) H 11/07/16 07:00 Blood Type O Positive 11/07/16 20:57 Blood Type Recheck O Pos 11/08/16 09:04 Antibody Screen NEGATIVE 11/07/16 20:57 Crossmatch See Detail 11/07/16 20:57 Tx Rx Implicated Unit 1 [id number] 11/08/16 09:04 Reaction Clerical Check Pass 11/08/16 09:04 Pre-Trans Blood Type O Positive 11/08/16 09:04 Pre-Trans Spec Appearnc Negative 11/08/16 09:04 Pre-Trans JOYCE IgG Negative 11/08/16 09:04 Pre-Trans JOYCE Poly Negative 11/08/16 09:04 Post-Trans Blood Type O Positive 11/08/16 09:04 Post-Trans Spec Appear Negative 11/08/16 09:04 Post-Trans JOYCE IgG Negative 11/08/16 09:04 Post-Trans JOYCE Poly Negative 11/08/16 09:04 Reaction Pathol Review See result comment 11/08/16 09:04 Spec Expiration Date 11/10/2016 - 2357 11/07/16 20:57 Microbiology 11/08/16 07:00 Urine,Catheterized Urine Culture - Final 11/08/16 09:00 Sputum Gram Stain - Preliminary 11/08/16 09:00 Sputum Sputum Culture - Preliminary 11/07/16 20:57 Blood Blood Culture - Preliminary No Growth after 24 hours Assessment and Plan (1) Blood loss anemia Narrative/Plan: 86-year-old male who has a long-standing history of multiple medical troubles has had the recent cardiovascular procedure. Continues to have ongoing difficulties with his overall recovery. Now presents with significant anemia. An developed hypercapnic respiratory failure. He is being ventilated with improvements. At this time his sternal wound is improving would consider negative pressure therapy. The site has not been with evidence of any recent infection. Sputum culture is of concern and antibiotic therapy has been initiated with cefepime as well as vancomycin until we have further culture data. Is significant anemia is being addressed and has received Bactrim red cell transfusions with improvement of his hemoglobin and hopefully oxygen-carrying capacity. Pulmonary critical care is following with attempts for extubation the near future. Status: Acute (2) Hypercapnic respiratory failure Status: Acute
[2016-11-09 19:59] LABS: Magnesium 2.2 mg/dL (1.6-2.3)
[2016-11-09] MEDS ORDERED: LEVOFLOXACIN 750MG-D5W PMX 750 MG in DEXTROSE/WATER 1 150ML.BAG IVPB SCH (21:00)
[2016-11-09 21:09] LABS: Glucose,Whole Blood 133 mg/dL (75-99)
[2016-11-10] MEDS: HYDROCORTISONE SUCCINATE 100 MG/2 ML VIAL IV SCH ×2 (01:18→08:32)
[2016-11-10 05:08] LABS: Anisocytosis Slight; CH 32.7; HCT 30.2 % (39.0-53.0); HDW 3.12; HGB 9.7 gm/dL (13.0-17.5); Hypochromasia Slight; MCH 33.3 pg (25.0-35.0); MCHC 32.2 g/dL (31.0-37.0); MCV 103.3 fL (80.0-100.0); Macrocytosis Moderate; Mean Platelet Volume 8.2; RBC 2.93 m/uL (4.30-5.90); RDW 19.2 % (11.5-15.5); WBC 6.7 k/uL (3.8-10.6)
[2016-11-10] MEDS: PROPOFOL 500 MG in EMPTY BAG 1 BAG IV SCH (05:38)
[2016-11-10 05:46] LABS: Calcium 8.2 mg/dL (8.4-10.2); Magnesium 2.1 mg/dL (1.6-2.3); Phosphorous 3.4 mg/dL (2.5-4.5); Potassium 3.7 mmol/L (3.5-5.1)
[2016-11-10] MEDS: CARVEDILOL 6.25 MG TAB PO SCH (05:55)
[2016-11-10] MEDS: LEVOTHYROXINE 75 MCG TAB PO SCH (05:55)
[2016-11-10] MEDS ORDERED: Potassium Replacement Protocol 1 EACH MISC MISCELLANE PRN (06:04)
[2016-11-10] MEDS ORDERED: DEXTROSE 5% IN WATER 1,000 ML IV SCH (06:45)
[2016-11-10] MEDS ORDERED: POTASSIUM CHLORIDE ORAL LIQUID 40 MEQ/30 ML CUP NG-TUBE SCH (07:00)
--- NOTE | 2016-11-10 07:39 | XR ---
EXAMINATION TYPE: XR chest 1V portable DATE OF EXAM: 11/10/2016 6:06 AM Comparison: 11/09/2016 Clinical History: 86-year-old male tube placement Findings: ET tube is satisfactory. NG tube courses below the diaphragm. The sidehole is at the level of the GE junction. Median sternotomy wires are present with post-CABG changes. Left PICC tip is at the mid to lower SVC level. Heart remains mildly enlarged. Normal variant azygos fissure. Mild elongation of the thoracic aorta. Diffuse interstitial densities persist but show slight improvement in the mid and lower lungs. Contin ued hazy bibasilar opacities. Impression: 1. Findings suggest CHF with slight improving interstitial edema. 2. Continued small pleural effusions with adjacent atelectasis and/or consolidation.
[2016-11-10] MEDS: IPRATROPIUM-ALBUTEROL 3 ML NEB INHALATION PRN (08:15)
[2016-11-10] MEDS: VANCOMYCIN 1,250 MG in SODIUM CHLORIDE 0.9% 250 ML IVPB SCH (08:31)
[2016-11-10] MEDS: PANTOPRAZOLE 40 MG/10 ML VIAL IVP SCH (08:32)
[2016-11-10] MEDS: DOPamine DRIP 800 MG in DEXTROSE/WATER 1 500ML.BAG IV SCH (08:32)
[2016-11-10] MEDS: CHLORHEXIDINE GLUCONATE 15 ML CUP MUCOUS MEM SCH (08:32)
[2016-11-10] MEDS: ASPIRIN 325 MG TAB PO SCH (08:32)
[2016-11-10 08:35] LABS: ABG HCO3 22 mmol/L (21-25); ABG PCO2 33 mmHg (35-45); ABG PH 7.43 (7.35-7.45); ABG PO2 158 mmHg (83-108)
[2016-11-10 08:36] LABS: ABG Base Excess -2.1 mmol/L; ABG TCO2 23 mmol/L (19-24)
[2016-11-10] MEDS ORDERED: ENOXAPARIN 40 MG/0.4 ML SYRINGE SQ SCH (09:00)
[2016-11-10 09:27] VITALS: TEMP 97.9
[2016-11-10] MEDS ORDERED: CARVEDILOL 6.25 MG TAB PO STA (09:29)
[2016-11-10 10:02] VITALS: BP 159/83; PULSE 75; RESP 17
[2016-11-10] MEDS ORDERED: LORazepam 2 MG/ML SYRINGE IV PRN (10:29)
[2016-11-10] MEDS ORDERED: DRY MOUTH SPRAY 44.3 SPRAY/44.3 ML SPRAY MUCOUS MEM PRN (10:29)
[2016-11-10] MEDS ORDERED: ARTIFICIAL TEARS-HYPROMELLOSE DROPS 15 ML BTL BOTH EYES PRN (10:29)
[2016-11-10] MEDS ORDERED: ACETAMINOPHEN SUPPOSITORY 650 MG SUPP RECTAL PRN (10:29)
[2016-11-10] MEDS ORDERED: SODIUM CHLORIDE 0.9% 1,000 ML IV SCH (10:30)
[2016-11-10] MEDS ORDERED: MORPHINE SULFATE (100 MG/2 ML) 100 MG in SODIUM CHLORIDE 0.9% 100 ML IV SCH (10:30)
[2016-11-10] MEDS: CEFEPIME 2 GM in SODIUM CHLORIDE 0.9% 50 ML IVPB SCH (10:39)
[2016-11-10] MEDS ORDERED: SCOPOLAMINE 1.5MG/72HR PATCH TRANSDERM PRN (11:00)
[2016-11-10] MEDS: MORPHINE SULFATE 4 MG/ML SYRINGE IV PRN ×2 (11:09→11:43)
--- NOTE | 2016-11-10 14:17 | P.PN ---
Subjective Principal diagnosis: Acute hypercapnic respiratory failure This is an 86-year-old white male with history of multiple medical problems, patient was brought in last night from [facility] with multiple complaints including lack of activity, weakness, poor appetite, shortness of breath, dry cough, patient has recent complex medical problems including recent cardiac surgery with complications related to sternal wound dehiscence, recent fall and hip fracture requiring surgery, and the patient has been in rehab recovering from his most recent surgeries. Patient has also been undergoing wound debridement, and wound VAC placement for his sternal wound. Upon arrival to the ER, patient was noted to have a low hemoglobin of 6.5. He was admitted for blood transfusion, and apparently early this morning patient was receiving his second unit of packed RBCs when he was noted to be calm bradycardic, hypotensive , and obtunded. Hence the patient was seen by the A team and he was transferred to the intensive care unit. Upon arrival to the ICU, patient was noted to be hypotensive and bradycardic, he was given atropine, placed on norepinephrine for low blood pressure, and ABG was performed. His ABG showed a significantly elevated pCO2 of 130, and his pH was just below 7. I was notified about this patient and about the ABG, and I recommended immediate intubation of the patient. Patient was placed on mechanical ventilation, kept on norepinephrine for low blood pressure, his heart rate responded well and upon my evaluation was in the low 80s. His lactic acid was less than 0.5 troponins were also normal TSH was noted to be elevated. His urinalysis was relatively unremarkable. Renal profile worsened from creatinine of 1.46 to creatinine of 1.80. Shortly after mechanical ventilation, repeat ABG showed a pO2 of 89 pCO2 of 50 to pH of 7.29 and this was on 80% FiO2. Chest x-ray showed mild congestive changes and COPD findings with residual small pleural effusions CT of the brain showed no evidence of acute intracranial hemorrhage or acute ischemic changes. Chronic small vessel ischemic changes noted serum cortisol is pending at the time of my dictation, patient was given 100 mg of Solu-Cortef earlier. All his meds were reviewed patient is presently on DuoNeb updrafts, Corag for LV dysfunction cefepime, dopamine, Levaquin, Synthroid, propofol, vancomycin patient will also be placed on GI and DVT prophylaxis. Patient was reevaluated today on 11/09/2016, he remains on mechanical ventilation, and his ventilator settings have not changed much except I cut down his FiO2 to 35%. And his rate will be cut down to 12. ABG this morning showed a pO2 of 172 pCO2 of 33 pH of 7.46 CBC showed a hemoglobin of 9.4, stable since he received a 2 units of packed RBCs yesterday. Basic metabolic profile is relatively normal his BUN is coming down to 40 and creatinine is improving from 1.80 yesterday to 1.60 today. Chest x-ray showed evidence of mild congestive heart failure, hence the patient will receive a dose of Lasix today. My plan today will be to consider a weaning trial if the patient is noted to be appropriate after sedation holiday. If he does seem to be appropriate, may consider weaning and extubation. If not the patient will be kept on mechanical ventilation for another 24 hours. In the meantime I discussed his condition with his at bedside. Patient clearly has some secretions in the endotracheal tube, and that by itself alone may delay the weaning and extubation trial. Patient was reevaluated today on 11/10/2016, he was still on mechanical ventilation, and his ventilator settings were reviewed. His ABG was reviewed, and I instructed the nurses to hold the propofol, and assess mental status, and if appropriate patient will be given a weaning trial. However shortly after a evaluated the patient, I was notified that the family would like the patient to be made comfort care measures. And would like him to be off mechanical ventilation, terminal weaning and comfort care measures. I felt that would be appropriate considering the patient medical problems and poor prognosis. Objective - Vital Signs Vital signs: Vital Signs Temp 97.9 F 11/10/16 08:00 Pulse 75 11/10/16 10:00 Resp 17 11/10/16 10:00 BP 159/83 11/10/16 10:00 Pulse Ox 100 11/10/16 10:00 Intake & Output 11/09/16 11/10/16 11/10/16 18:59 06:59 18:59 Intake Total 670.966 441.895 592.258 Output Total 1235 820 195 Balance -564.034 -378.105 397.258 Weight 70.6 kg 71.1 kg Intake: IV 170 350 340 0.9 170 230 Dextrose 5% in Water 1, 20 90 000 ml @ 50 mls/hr IV . Q20H [facility] Rx#:[id number] Levofloxacin 750Mg-D5w 100 Pmx 750 mg In Dextrose/ Water 1 150ml.bag @ 100 mls/hr IVPB Q48H [facility] Rx#: [id number] Vancomycin 1,250 mg In 250 Sodium Chloride 0.9% 250 ml @ 125 mls/hr IVPB Q24HR@0800 [facility] Rx#: [id number] Intake, IV Titration 500.966 91.895 52.258 Amount Cefepime 2 gm In Sodium 50 Chloride 0.9% 50 ml @ 100 mls/hr IVPB Q12HR [facility] Rx #:[id number] Morphine Sulfate 100 mg 2.278 In Sodium Chloride 0.9% 100 ml @ 2 MG/HR 2.04 mls /hr IV .Q24H [facility] Rx#: [id number] Potassium Chloride 10 meq 100 Lidocaine 2% Inj 10 mg In Sodium Chloride 0.9% 100 ml @ 100 mls/hr IV Q1HR [facility] Rx#:[id number] Propofol 50 ml As IV .STK 22.1 -MED [facility] Rx#:[id number] Propofol 500 mg In Empty 78.866 91.895 49.98 Bag 1 bag @ Titrate IV . Q0M [facility] Rx#:[id number] Vancomycin 1,250 mg In 250 Sodium Chloride 0.9% 250 ml @ 125 mls/hr IVPB Q24HR@0800 [facility] Rx#: [id number] Oral 0 Other 200 Output: Urine 1235 820 195 Other: Voiding Method Indwelling Catheter Indwelling Catheter Indwelling Catheter ABP, PAP, CO, CI - Last Documented Arterial Blood Pressure 167/75 - Exam Physical Exam: Revealed an 86-year-old white male, unresponsive, on mechanical ventilation, looks pale and chronically ill. Patient is on propofol which I plan to hold and assess mental status off sedation. HEENT:[Neck is supple.] [No neck masses.] [No thyromegaly.] [No JVD.] Endotracheal tube is intact, patient looks pale. Chest: [Minimal crackles at the bases, no rhonchi and no wheezes.] Cardiac Exam: [Normal S1 and S2, no S3 gallop, 2/6 systolic murmur throughout the precordium.] Abdomen: [Soft, nontender, no megaly, no rebound, no guarding, normal bowel sounds.] Extremities: [No clubbing, no edema, no cyanosis.] Neurological Exam: Cannot be assessed, patient is fully sedated, however he seems to move upper extremities to deep painful stimuli. - Labs CBC & Chem 7: 11/10/16 04:58 11/10/16 10:10 Labs: Abnormal Lab Results - Last 24 Hours (Table) 11/09/16 11/10/16 11/10/16 Range/Units 21:07 04:58 04:58 RBC 2.93 L (4.30-5.90) m/uL Hgb 9.7 L (13.0-17.5) gm/dL Hct 30.2 L (39.0-53.0) % MCV 103.3 H (80.0-100.0) fL RDW 19.2 H (11.5-15.5) % ABG pCO2 (35-45) mmHg ABG pO2 (83-108) mmHg ABG O2 Saturation (94-97) % Sodium 151 H (137-145) mmol/L Chloride 115 H (98-107) mmol/L BUN 43 H (9-20) mg/dL Creatinine 1.51 H (0.66-1.25) mg/dL POC Glucose (mg/dL) 133 H (75-99) mg/dL Calcium 8.2 L (8.4-10.2) mg/dL 11/10/16 Range/Units 08:19 RBC (4.30-5.90) m/uL Hgb (13.0-17.5) gm/dL Hct (39.0-53.0) % MCV (80.0-100.0) fL RDW (11.5-15.5) % ABG pCO2 33 L (35-45) mmHg ABG pO2 158 H (83-108) mmHg ABG O2 Saturation 100.0 H (94-97) % Sodium (137-145) mmol/L Chloride (98-107) mmol/L BUN (9-20) mg/dL Creatinine (0.66-1.25) mg/dL POC Glucose (mg/dL) (75-99) mg/dL Calcium (8.4-10.2) mg/dL Microbiology - Last 24 Hours (Table) 11/08/16 09:00 Gram Stain - Final Sputum Sputum Culture - Final 11/08/16 07:00 Urine Culture - Final Urine,Catheterized Assessment and Plan Plan: Impression: 1 acute hypercapnic respiratory failure, exact etiology is not clear, obviously the patient has underlying COPD, and he presented with profound anemia and possible sepsis, apparently his respiratory status deteriorated secondary to congestive heart failure, may or may not be related to blood transfusion, and the patient went on to develop significant respiratory muscle fatigue and profound hypercapnia. That resulted in mental status change and CO2 narcosis. No evidence of CVA noted on the CT of the brain. After reviewing the chart, there is no evidence where the patient received any narcotics or significant respiratory depressants to explain his acute hypercapnia. I believe his acute hypercapnia and respiratory failure is multifactorial, secondary to severe underlying COPD, congestive heart failure cardiomyopathy and LV dysfunction, profound anemia, and possible sepsis. The medications including Remeron Xanax and Benadryl may have also contributed to his acute hypercapnia. Recommendation: Patient will be kept on mechanical ventilation, antibiotics, hemodynamic support including the use of pressors, fluids but cautiously, we'll correct his anemia obviously it was already corrected with 2 units of packed RBCs. GI and DVT prophylaxis and will continue to follow closely. Multiple comorbidities including history of severe coronary artery disease and previous CABG, cardiomyopathy and LV dysfunction, ejection fraction of 30 percent, history of previous CVA and TIA history of hypothyroidism on replacement therapy, history of iron deficiency anemia history of sternal wound infection and dehiscence patient had a wound VAC in place and it was removed by the thoracic surgeon on the case. History of pancreatic cancer Overall prognosis is definitely poor and guarded, we'll continue to follow closely. Critical care time is 35 minutes. My plan today will be to adjust his ventilator settings, and consider weaning trial if the patient seems to be appropriate upon sedation holiday. However considering the family's wishes to make the patient comfort care, I feel would be best to extubate the patient, and follow comfort care measures as per family's wishes. Critical care Time is 35 minutes. Time with Patient: Greater than 30
--- NOTE | 2016-11-10 16:11 | PN ---
INTERVAL HISTORY: Patient continued to be hemodynamically stable overnight. No major events reported per nursing staff. Patient is still on full vent support with weaning trials this morning. Patient's at the bedside requiring patient to be comfort measures only as he never wished to be on a ventilator. PHYSICAL EXAMINATION: Vital signs stable over the last 24 hours. GENERAL: Sedated. HEART: Normal S1, S2. LUNGS: Coarse breathing sounds bilaterally on weaning protocol. ABDOMEN: Soft, no tenderness, positive bowel sounds in all 4 quadrants. Wound VAC in place on the mid mediastinum. EXTREMITIES: Lower extremity no edema. PSYCH: Lethargic, does not follow commands. Moving all 4 extremities with upper extremity soft restraint in place. SKIN: No new rash, but seems to be pale. Imaging and labs: CBC showed stable hemoglobin at 9.7. ABG showed pH of 7.4 and pCO2 of 33, improved from prior study. PO2 158, Chem-7 showed sodium 151, stable otherwise glucose 133, magnesium 2.2. ASSESSMENT AND PLAN: 1. Acute respiratory failure with hypoxia and hypercapnia. 2. Status post open heart surgery with wound adhesions and wound VAC placement. 3. Blood loss anemia, status post transfusion. 4. Hyponatremia. 5. Coronary artery disease. 6. History of cerebrovascular accident. 7. Peripheral arterial disease. 8. Hypothyroidism. 9. Anemia. 10. Chronic kidney disease. PLAN: I had a long discussion with the at the bedside in the presence of the nursing staff who requested patient to be extubated and placed on comfort measures only as he never wished to be treated in that way. Patient will be extubated and we will start patient on comfort measures medication only and plan discussed with the at length in the presence of the nursing staff as mentioned above and we will proceed with the above request.
[2016-11-10] MEDS ORDERED: CARVEDILOL 12.5 MG TAB PO SCH (17:30)
[2016-11-11] MEDS ORDERED: VANCOMYCIN TROUGH DUE 1 EACH MISC MISCELLANE ONE (07:00)
--- NOTE | 2016-11-13 12:50 | DS ---
DATE OF ADMISSION: 11/07/2016 DATE OF DISCHARGE: 11/10/2016 ADMITTING DIAGNOSES: 1. Acute hypercapnic respiratory failure with undetermined etiology. 2. Hypernatremia. 3. Coronary artery disease, status post CABG with wound dehiscence. 4. Cerebrovascular accident. 5. Peripheral arterial disease. 6. Hypothyroidism. 7. Anemia, status post transfusion. 8. Chronic kidney disease. DISCHARGE DIAGNOSES: Patient . HOSPITAL COURSE: This is an 86-year-old male who presented to the hospital for blood transfusion. Patient was having altered mental status. His ABG revealed pCO2 of greater than 100. Patient was intubated ( ) and transferred to the intensive care unit. Patient was in critical condition and requested patient not to be resuscitated more than one day with pressor support as he requested specifically not to be placed on the vent for any reason. The patient was extubated, transferred to private room with comfort measures only as patient's requested and patient today at 6:05 p.m. DISCHARGE PROCESS: 35 minutes.
--- NOTE | 2016-11-14 16:35 | CDI ---
In responding to this query, please exercise your independent professional judgment. The [facility] Coding Staff and Clinical Documentation Specialists appreciate your assistance in clarifying documentation, maintaining compliance with coding guidelines, accurately documenting patients condition and capturing severity of illness. The fact that a question is asked does not imply that any particular answer is desired or expected. Communication forms are a method of clarifying documentation and are not made part of the Legal Health Record. Thank you in advance for your clarification. Last Revision, January 2016 Lori Doyle [address] [facility] [place] [address] Documentation Clarification Form Date: 11/14/2016 3:45:00 PM From: Evelin Mcpherson Admit Date: 11/07/2016 9:36:00 PM Patient Name: Silvia Bill Visit Number: [id number] Discharge Date: Dr. Indiana Downs Altered mental status was documented in the History and Physical and your progress notes. Patient history/risk factors: Coronary artery disease, Congestive heart failure , systolic, COPD, Hypertension, Open heart surgery with nonhealing sternal wound. Clinical Indicators: Patient was brought to the emergency with altered mental status and shortness of breath, and was found to have a hemoglobin of 6.5. Labs: ABG; A-Line: pH 7.29, pCO2 52, PO2 89 Total CO2 26; NA+ 147, Chest X Ray: Mild Congestive heart failure, Bilateral pleural effusion that are increase. Bilateral lower lobe pneumonia cannot be excluded. Basilar pulmonary infiltrates that are new compared to last exam. CT Brain: No acute intracranial abnormality seen. Stable mild atrophy and changes of chronic small vessel ischemic disease. Treatment: Hemodynamic monitoring Neurological assessment per protocol [facility] Monitor Labs Mechinical vent support Levophed drip IV Vancomycin In your professional opinion, please clarify the etiology of the altered mental status, if known. Encephalopathy (specify Type and Underlying Medical Illness) Specify: Toxic Encephalopathy Metabolic Encephalopathy Other (Specify) Delirium (specify cause): Dementia (if know, specify Type and if with/without Behavioral Disturbance) Other condition (please specify) Unable to determine Please document in your progress notes and discharge summary in order to capture severity of illness and risk of mortality. Include clinical findings that support your diagnosis. FYI: Press F11 to launch patient chart. Place X here if this finding has no clinical significance, is not applicable or if you are not able to provide any additional documentation. MTDD
--- NOTE | 2016-11-15 07:49 | CDI ---
In responding to this query, please exercise your independent professional judgment. The [facility] Coding Staff and Clinical Documentation Specialists appreciate your assistance in clarifying documentation, maintaining compliance with coding guidelines, accurately documenting patients condition and capturing severity of illness. The fact that a question is asked does not imply that any particular answer is desired or expected. Communication forms are a method of clarifying documentation and are not made part of the Legal Health Record. Thank you in advance for your clarification. Last Revision, September 2015 [facility] [place] [address] [facility] [facility] [facility] [place] [address] Documentation Clarification Form Date: 11/15/2016 7:43:00 AM From: Krystyna Ogden Phone: Admit Date: 11/07/2016 9:36:00 PM Patient Name: Silvia Bill Visit Number: [id number] Discharge Date: 11/15/16 Dr. Indiana Downs The patient was admitted with acutge hypercapnic respiratory failure, etiology unclear, hypernatremia, anemia and mental status changes. In your professional opinion, can you please clarify the cause of ? Please document in your progress notes and discharge summary in order to capture severity of illness and risk of mortality. Include clinical findings that support your diagnosis. FYI: Press F11 to launch patient chart. NICOLE Alonso, CCS, AHIMA Certified [employer] Tax Technician/[place] Tax Technician II TORY
--- NOTE | 2016-11-15 09:56 | CDI ---
In responding to this query, please exercise your independent professional judgment. The [facility] Coding Staff and Clinical Documentation Specialists appreciate your assistance in clarifying documentation, maintaining compliance with coding guidelines, accurately documenting patients condition and capturing severity of illness. The fact that a question is asked does not imply that any particular answer is desired or expected. Communication forms are a method of clarifying documentation and are not made part of the Legal Health Record. Thank you in advance for your clarification. Last Revision, September 2015 Lori Doyle [address] [facility] [place] [address] Documentation Clarification Form Date: 11/15/2016 9:22:00 AM From: Evelin Mcpherson Admit Date: 11/07/2016 9:36:00 PM Patient Name: Silvia Bill Visit Number: [id number] Discharge Date: Dr. Indiana Downs History/Risk Factors: Coronary artery disease, Congestive heart failure, systolic; COPD, Hypertension, Noh healing wound after open heart on wound VAC, Admission: BUN 37, CR1.46 GFR 46 11/08/16: BUN 38 CR 1.80 GFR 36 Baseline: not noted Clinical Indicators: ED with altered mental status and shortness of breath His hemoglobin was 6.5, ABG elevated CO2, and per H/P extremely acidotic with hypernatremia, likely secondary to intravascular depletion. Treatment: IV Fluids Monitor Labs In order to capture the severity of condition, please clarify if the condition signifies: CKD Stage 1 (GFR > 90) CKD Stage 2 (GFR 60-89) CKD Stage 3 (GFR 30-59) CKD Stage 4 (GFR 15-29) CKD Stage 5 (GFR <15) ESRD Unable to determine Other condition, please specify Please document in your progress notes and discharge summary in order to capture severity of illness and risk of mortality. Include clinical findings that support your diagnosis. FYI: Press F11 to launch patient chart. Place X here if this finding has no clinical significance, is not applicable or if you are not able to provide any additional documentation. TORY
--- NOTE | 2016-11-15 11:02 | CDI ---
multifactorial leanne, hypovolemia, septic In responding to this query, please exercise your independent professional judgment. The [facility] Coding Staff and Clinical Documentation Specialists appreciate your assistance in clarifying documentation, maintaining compliance with coding guidelines, accurately documenting patients condition and capturing severity of illness. The fact that a question is asked does not imply that any particular answer is desired or expected. Communication forms are a method of clarifying documentation and are not made part of the Legal Health Record. Thank you in advance for your clarification. Last Revision, January 2016 Lori Doyle [address] [facility] [place] [address] Documentation Clarification Form Date: 11/15/2016 9:49:00 AM From: Evelin Mcpherson Admit Date: 11/07/2016 9:36:00 PM Patient Name: Silvia Bill Visit Number: [id number] Discharge Date: Dr. Indiana Downs ER evaluation for shortness of breath. Patient was severly anemic, weak, and dehydrated on exam. Patient had bloody drainage from surgical vac. Patient's hemoglobin had dropped significantly. Patient history/risk factors: Coronary artery disease, sternal wound dehiscence with VAC placement. Systolic heart failure, CVA/TIA, COPD, Hypertension Clinical Indicators: Patient was receiving his second unit of blood, and became bradycardic, hypotensive, and obtunded. Vitals: 80/44 50 16 99 4/L NC Treatment: Atropine, Levophed drip Mechanical ventilation Levaquin IV, Vancomycin IV, Cefepime IV Александр silverio, In your professional opinion, can you please clarify if the condition, evaluation and treatment exhibit symptoms of? Shock: type of shock if known? Septic Shock o Suspected or known causative organism o Any associated organ failure Cardiogenic Shock o Cause Hypovolemic Shock o Cause Other, please specify Unable to determine Please document in your progress notes and discharge summary in order to capture severity of illness and risk of mortality. Include clinical findings that support your diagnosis. FYI: Press F11 to launch patient chart. Place X here if this finding has no clinical significance, is not applicable or if you are not able to provide any additional documentation. TORY
--- NOTE | 2016-11-15 12:21 | CDI ---
In responding to this query, please exercise your independent professional judgment. The [facility] Coding Staff and Clinical Documentation Specialists appreciate your assistance in clarifying documentation, maintaining compliance with coding guidelines, accurately documenting patients condition and capturing severity of illness. The fact that a question is asked does not imply that any particular answer is desired or expected. Communication forms are a method of clarifying documentation and are not made part of the Legal Health Record. Thank you in advance for your clarification. Last Revision, September 2015 Lori Doyle [address] [facility] [place] [address] Documentation Clarification Form Date: 11/15/2016 12:00:00 PM From: Evelin Mcpherson Admit Date: 11/07/2016 9:36:00 PM Patient Name: Silvia Bill Visit Number: [id number] Discharge Date: Dr. Indiana Dowsn A diagnosis of anemia lacks specificity to accurately reflect your patients severity of condition and clarification is needed. Patient history/risk factors: Coronary artery disease, Sternal wound dehiscence with Vac, Systolic heart failure, CVA/TIA, COPD, Hypertension, Iron deficiency anemia/MGUS Clinical Indicators: ER for evaluation of severe weakness, lethargy, confusion and shortness of breath. Patient has drainage from surgical vac, bloody drainage. Patient to be admitted for monitoring of hemoglobin, transfusion and further management and treatment of chronic disease Per H/P and discharge summary: Patient presented to the hospital for blood transfusion. Hemoglobin: 6.5 Hematocrit: 20.3 Vital signs: 118/60 67 16 98 82 % RA Treatment: 2 units of PRBCs transfused IV Fluids Monitor Labs In order to capture the severity of condition, please clarify the type of anemia and etiology if known: Acute blood loss anemia Acute on chronic blood loss anemia Chronic blood loss anemia Iron deficiency anemia Hemolytic anemia Drug induced anemia Anemia due to malignancy Nutritional anemia Anemia of chronic kidney disease Unable to determine Other, please specify Please document in your progress notes and discharge summary in order to capture severity of illness and risk of mortality. Include clinical findings that support your diagnosis. FYI: Press F11 to launch patient chart. Place X here if this finding has no clinical significance, is not applicable or if you are not able to provide any additional documentation. TORY
--- NOTE | 2016-11-18 07:46 | CDI ---
In responding to this query, please exercise your independent professional judgment. The [facility] Coding Staff and Clinical Documentation Specialists appreciate your assistance in clarifying documentation, maintaining compliance with coding guidelines, accurately documenting patients condition and capturing severity of illness. The fact that a question is asked does not imply that any particular answer is desired or expected. Communication forms are a method of clarifying documentation and are not made part of the Legal Health Record. Thank you in advance for your clarification. Last Revision, September 2015 [facility] [address] [place] [address] Documentation Clarification Form Date: 11/15/2016 7:43:00 AM From: Krystyna Ogden Phone: Admit Date: 11/07/2016 9:36:00 PM Patient Name: iSlvia Bill Visit Number: [id number] Discharge Date: 11/18/16 Dr. Indiana Downs The patient was admitted with acutge hypercapnic respiratory failure, etiology unclear, hypernatremia, anemia and mental status changes. In your professional opinion, please clarify the cause of ? Please document in your progress notes and/or discharge summary in order to capture severity of illness and risk of mortality. Include clinical findings that support your diagnosis. FYI: Press F11 to launch patient chart. NICOLE Alonso, CCS, AHIMA Certified [employer] Steam[employer] Agent/Cafeteria Supervisor Steamship [employer] II [employer]
--- NOTE | 2016-11-29 15:42 | P.PN ---
Progress Note - Text Clarification of discharge diagnoses: 1. Acute hypercapnic respiratory failure due to acute systolic heart failure and severe underlying COPD, anemia and possible sepsis with pneumonia not completely excluded with metabolic encephalopathy--all present on admission. Preliminary cause of . 2. Acute blood loss anemia with chronic anemia with MGUS status post transfusion of 2 units of packed RBCs with hypovolemic shock. 3. History of coronary artery disease status post three-vessel coronary artery bypass graft with sternal wound dehiscence. 4. COPD. 5. Hypertension, hypertensive cardiovascular disease. 6. Recent fall with left intertrochanteric fracture status post closed reduction and intramedullary hip screw fixation. 7. Acute kidney injury with chronic kidney disease stage III. 8. History of pancreatic cancer status post Whipple procedure. 9. Hypernatremia. 10. Peripheral artery disease. 11. History of CVA Impression and plan of care have been directed as dictated by the signing physician. Martha Toth nurse practitioner acting as scribe for signing physician.
== END 2016-11-10 19:05 | disposition expired | DRG 871 ==
LOC: EC 19:46 → 6SEL 21:36 → 6ICU 11-08 06:02 → 5ONC 11-10 13:02
PROVIDERS: ADMIT Internal Medicine; ATTEND Internal Medicine
PROC: 30233N1 Transfusion of Nonautologous Red Blood Cells into Peripheral Vein, Percutaneous Approach (ICD-10-PCS; 2016-11-07)
PROC: 5A1945Z Respiratory Ventilation, 24-96 Consecutive Hours (ICD-10-PCS; principal; 2016-11-08)
PROC: 0BH17EZ Insertion of Endotracheal Airway into Trachea, Via Natural or Artificial Opening (ICD-10-PCS; 2016-11-08)
PROC: 0D9670Z Drainage of Stomach with Drainage Device, Via Natural or Artificial Opening (ICD-10-PCS; 2016-11-08)
DX: A41.9 Sepsis, unspecified organism (principal); J96.02 Acute respiratory failure with hypercapnia; E43 Unspecified severe protein-calorie malnutrition; I50.21 Acute systolic (congestive) heart failure; G93.41 Metabolic encephalopathy; J18.9 Pneumonia, unspecified organism; N17.9 Acute kidney failure, unspecified; J96.01 Acute respiratory failure with hypoxia; E87.0 Hyperosmolality and hypernatremia; I13.0 Hypertensive heart and chronic kidney disease with heart failure and stage 1 through stage 4 chronic kidney disease, or unspecified chronic kidney disease; J44.0 Chronic obstructive pulmonary disease with (acute) lower respiratory infection; T81.32XA Disruption of internal operation (surgical) wound, not elsewhere classified, initial encounter; I42.9 Cardiomyopathy, unspecified; J44.1 Chronic obstructive pulmonary disease with (acute) exacerbation; E87.2 Acidosis; D62 Acute posthemorrhagic anemia; D47.2 Monoclonal gammopathy; Z66 Do not resuscitate; Z51.5 Encounter for palliative care; E86.0 Dehydration; D50.0 Iron deficiency anemia secondary to blood loss (chronic); I73.9 Peripheral vascular disease, unspecified; I25.10 Atherosclerotic heart disease of native coronary artery without angina pectoris; E03.9 Hypothyroidism, unspecified; Z68.21 Body mass index [BMI] 21.0-21.9, adult; K57.90 Diverticulosis of intestine, part unspecified, without perforation or abscess without bleeding; N42.9 Disorder of prostate, unspecified; E78.5 Hyperlipidemia, unspecified; M19.90 Unspecified osteoarthritis, unspecified site; K21.9 Gastro-esophageal reflux disease without esophagitis; N18.3 Chronic kidney disease, stage 3 (moderate); Z86.73 Personal history of transient ischemic attack (TIA), and cerebral infarction without residual deficits; T81.32XD Disruption of internal operation (surgical) wound, not elsewhere classified, subsequent encounter; Y95 Nosocomial condition; Z16.24 Resistance to multiple antibiotics; Z78.1 Physical restraint status; Z90.49 Acquired absence of other specified parts of digestive tract; Z90.411 Acquired partial absence of pancreas; Z95.1 Presence of aortocoronary bypass graft; Z85.07 Personal history of malignant neoplasm of pancreas; Z85.46 Personal history of malignant neoplasm of prostate; Y83.4 Other reconstructive surgery as the cause of abnormal reaction of the patient, or of later complication, without mention of misadventure at the time of the procedure; Z79.02 Long term (current) use of antithrombotics/antiplatelets; Z79.82 Long term (current) use of aspirin; Z79.899 Other long term (current) drug therapy
CPT/HCPCS: 31500; 36415; 36600; 70450; 71010; 71020; 80048; 80053; 81001; 81003; 82306; 82533; 82550; 82553; 82728; 82805; 83540; 83550; 83605; 83735; 83970; 84100; 84132; 84443; 84484; 84550; 85025; 85027; 85610; 85730; 86850; 86880; 86900; 86901; 86920; 87040; 87070; 87086; 87205; 93005; 93306; 94002; 94003; 94640; 96361; 96374; 97597; 99291